=== PATIENT | male | born 1960 | race Caucasian/White ===

== ENCOUNTER 2018-01-17 18:59 | Inpatient (IN) | payer MEDICAID, OTHER ==
[~2018-01-17] VITALS: Ht 177.8 cm; Wt 128.7 kg
[2018-01-17] MEDS ORDERED: ondansetron/PF 4mg/2ml inj IV ONE (19:50)
[2018-01-17] MEDS ORDERED: normal saline 1000ML IV soln IVB ONE ×2 (19:50→22:10)
[2018-01-17] MEDS ORDERED: morphine 4 MG/ML inj SYRINge IV ONE (20:00)
[2018-01-17 20:08] LABS: BASOPHILS % (AUTO) 0.3 % (0-1); EOSINOPHILS % (AUTO) 0.4 % (0-6); HEMATOCRIT 44.2 % (42.0-52.0); HEMOGLOBIN 14.9 g/dl (14.0-17.9); LYMPHOCYTES # (AUTO) 0.7 X10'3 (1.1-4.8); LYMPHOCYTES % (AUTO) 11.2 % (21-51); MEAN CORPUSCULAR HEMOGLOBIN 38.5 PG (27.0-31.0); MEAN CORPUSCULAR HGB CONC 33.7 % (33.0-36.5); MEAN CORPUSCULAR VOLUME 114.2 FL (78-98); MEAN PLATELET VOLUME 10.1 FL (7.4-10.4); MONOCYTES # (AUTO) 0.8 X10'3 (0-0.9); MONOCYTES % (AUTO) 12.2 % (2-12); NEUTROPHILS # (AUTO) 4.9 X10'3 (1.8-7.7); NEUTROPHILS % (AUTO) 75.9 % (42-75); PLATELET COUNT 61 X10'3 (140-440); RED BLOOD COUNT 3.87 X10'6 (4.70-6.10); RED CELL DISTRIBUTION WIDTH 15.3 % (11.5-14.5); WHITE BLOOD COUNT 6.4 X10'3 (4.5-11.0)
[2018-01-17 20:22] LABS: ALANINE AMINOTRANSFERASE 32 U/L (12-78); ALBUMIN 1.6 G/DL (3.4-5.0); ALKALINE PHOSPHATASE 75 IU/L (46-116); ASPARTATE AMINO TRANSFERASE 61 U/L (10-37); BILIRUBIN,TOTAL 10.3 MG/DL (0.1-1.0); BLOOD UREA NITROGEN 19 MG/DL (7-18); CALCIUM 7.9 MG/DL (8.5-10.1); CHLORIDE 97 MMOL/L (99-107); CREATININE 1.73 MG/DL (0.60-1.10); GLUCOSE 101 MG/DL (70-104); TOTAL CARBON DIOXIDE 24.1 MMOL/L (24-32); eGFR 41 ML/MIN
[2018-01-17 20:41] LABS: ALBUMIN/GLOBULIN RATIO 0.3 (1.1-1.5); ANION GAP 16 (8-16); POTASSIUM 3.8 MMOL/L (3.5-5.1); SODIUM 137 MMOL/L (135-145); TOTAL PROTEIN 6.5 G/DL (6.4-8.2)
[2018-01-17 20:42] LABS: ANISOCYTOSIS 1+; PLATELET ESTIMATE DECREASED
[2018-01-17] MEDS: piperacillin/tazo 3.375gm/50ml 50 ML IV SCH (20:53)
[2018-01-17] MEDS ORDERED: SPIR25TA5 PO (20:59)
[2018-01-17] MEDS ORDERED: DIGO125T97 PO (20:59)
[2018-01-17] MEDS ORDERED: THI100T PO (20:59)
[2018-01-17] MEDS ORDERED: FURO20TA4 PO (20:59)
[2018-01-17] MEDS ORDERED: METO-411 PO (20:59)
[2018-01-17] MEDS ORDERED: LISI2.5T2 PO (20:59)
[2018-01-17] MEDS ORDERED: FURO40TA4 PO (20:59)
[2018-01-17] MEDS ORDERED: FOLI0.4T2 PO (20:59)
[2018-01-17] MEDS ORDERED: temazepam 15mg capsule PO PRN (21:00)
[2018-01-17 22:31] LABS: ETHANOL 0.026 GM/DL (0.0-0.010); LIPASE 128 U/L (73-393); MAGNESIUM 1.6 MG/DL (1.5-2.4)
[2018-01-17 22:36] LABS: PROTHROMBIN TIME 20.1 SECONDS (9.0-12.0)
[2018-01-17 22:37] LABS: PARTIAL THROMBOPLASTIN TIME 42 SECONDS (22-32)
[2018-01-17] MEDS ORDERED: magnesium hydroxide 30ml (MOM) UD suspension PO PRN (23:35)
[2018-01-17] MEDS ORDERED: bisacodyl 10mg suppository rectal RC PRN (23:35)
[2018-01-17] MEDS ORDERED: methylPREDNISolone sod succ 125mg/2ml vial IV ONE (23:35)
[2018-01-17] MEDS ORDERED: loperamide 2mg capsule PO PRN (23:35)
[2018-01-17] MEDS ORDERED: acetaminophen 325mg tablet PO PRN ×2 (23:35)
[2018-01-17] MEDS ORDERED: dicyclomine 10 MG capsule PO PRN (23:35)
[2018-01-17] MEDS ORDERED: haloperidol 5mg tablet PO PRN (23:35)
[2018-01-17] MEDS ORDERED: haloperidol lactate 5mg/ml inj IM PRN (23:35)
[2018-01-17] MEDS ORDERED: cyclobenzaprine 10mg tablet PO PRN (23:35)
[2018-01-17] MEDS ORDERED: mag hydrox/Alum hydrox/simeth 30ml oral suspension PO PRN ×2 (23:35)
[2018-01-17] MEDS ORDERED: morphine 2 MG/ML inj. syringe IV PRN (23:35)
[2018-01-17] MEDS ORDERED: acetaminophen 650mg rectal suppository RC PRN (23:35)
[2018-01-17] MEDS ORDERED: diphenhydrAMINE 50 mg/ml inj IV PRN (23:35)
[2018-01-17] MEDS ORDERED: diphenhydrAMINE 25mg capsule PO PRN (23:35)
[2018-01-17] MEDS ORDERED: dextrose 50%-water 50ml dispensing syringe IV PRN (23:35)
[2018-01-17] MEDS ORDERED: HYDROmorphone 1 mg/ml syringe IV PRN (23:35)
[2018-01-17] MEDS ORDERED: magnesium Cl slow-release 64mg tablet PO PRN (23:45)
[2018-01-17] MEDS ORDERED: magnesium 4gm in 100ml NS 100 ML IV PRN (23:45)
[2018-01-17] MEDS ORDERED: magnesium 1gm/100ml D5W IVPB 100 ML IV PRN (23:45)
[2018-01-18] VITALS (10 sets, daily range): BP systolic 79–120; BP diastolic 42–76
[2018-01-18] MEDS ORDERED: piperacillin/tazo 3.375gm/50ml 50 ML IV SCH
[2018-01-18] MEDS: normal saline 1000ml 1,000 ML IV SCH ×3 (00:02→19:33)
[2018-01-18 00:06] LABS: ABG BASE EXCESS -2.9 mmol/L (-2.0-3.0); ABG HCO3 21.7 mmol/L (22.0-26.0); ABG OXYGEN SATURATION 95.2 % (95-98); ABG PCO2 (T) 37.3 mmHg (35.0-48.0); ABG PH (T) 7.381 (7.350-7.450); ABG PO2 (T) 79.9 mmHg (83-108); ALLEN'S TEST Positive; FCOHb 2.3 % (0.5-1.5); FLOW 2 L/min; PATIENT TEMPERATURE 36.9; RESPIRATORY RATE (OBSERVED) 20 b/min
[2018-01-18 00:47] LABS: HEMOGLOBIN A1C 4.6 % (4.5-6.2)
[2018-01-18 00:47] LABS: URINE AMPHETAMINE SCREEN NEGATIVE (Neg); URINE BARBITUATE SCREEN NEGATIVE (Neg); URINE BENZODIAZEPINES SCREEN NEGATIVE (Neg); URINE CANNABINOID SCREEN POSITIVE (Neg); URINE COCAINE SCREEN NEGATIVE (Neg); URINE METHADONE SCREEN NEGATIVE (Neg); URINE OPIATE SCREEN POSITIVE (Neg); URINE PHENCYCLIDINE SCREEN NEGATIVE (Neg)
[2018-01-18] MEDS: piperacillin/tazo 3.375gm/50ml 50 ML IV SCH (02:00)
[2018-01-18] MEDS: morphine 2 MG/ML inj. syringe IV PRN (04:56)
[2018-01-18] MEDS: docusate sod 100mg capsule PO SCH ×2 (06:26→19:36)
[2018-01-18 06:35] LABS: HEMATOCRIT 41.4 % (42.0-52.0); HEMOGLOBIN 14.1 g/dl (14.0-17.9); MEAN CORPUSCULAR HEMOGLOBIN 38.9 PG (27.0-31.0); MEAN CORPUSCULAR VOLUME 114.5 FL (78-98); MEAN PLATELET VOLUME 10.3 FL (7.4-10.4); RED BLOOD COUNT 3.62 X10'6 (4.70-6.10); RED CELL DISTRIBUTION WIDTH 15.2 % (11.5-14.5); WHITE BLOOD COUNT 5.2 X10'3 (4.5-11.0)
[2018-01-18 06:42] LABS: PLATELET COUNT 40 X10'3 (140-440)
[2018-01-18 06:59] LABS: ALANINE AMINOTRANSFERASE 27 U/L (12-78); ALBUMIN 1.4 G/DL (3.4-5.0); ALKALINE PHOSPHATASE 58 IU/L (46-116); AMYLASE 21 U/L (25-115); ANION GAP 9 (8-16); ASPARTATE AMINO TRANSFERASE 53 U/L (10-37); BILIRUBIN,TOTAL 9.8 MG/DL (0.1-1.0); BLOOD UREA NITROGEN 27 MG/DL (7-18); BUN/CREATININE RATIO 13.9 (5.4-32.0); CALCIUM 7.1 MG/DL (8.5-10.1); CHLORIDE 103 MMOL/L (99-107); CREATININE 1.94 MG/DL (0.60-1.10); GLUCOSE 72 MG/DL (70-104); MAGNESIUM 1.4 MG/DL (1.5-2.4); SODIUM 134 MMOL/L (135-145); TOTAL CARBON DIOXIDE 22.5 MMOL/L (24-32); eGFR 36 ML/MIN
[2018-01-18 07:03] LABS: ANISOCYTOSIS 1+; PLATELET ESTIMATE DECREASED; TOTAL CELLS COUNTED 100
[2018-01-18 07:04] LABS: POLYCHROMASIA FEW
[2018-01-18 07:10] LABS: ALBUMIN/GLOBULIN RATIO 0.4 (1.1-1.5); POTASSIUM 4.6 MMOL/L (3.5-5.1); TOTAL PROTEIN 5.4 G/DL (6.4-8.2)
[2018-01-18] MEDS: piperacillin/tazobactam inj. 3.375 GM in normal saline 100ml IV SCH ×3 (07:17→19:25)
[2018-01-18] MEDS: pantoprazole 40 MG vial IV SCH ×2 (07:17→19:25)
[2018-01-18] MEDS: albumin (Human) 5% 250ml 250 ML IV SCH ×2 (07:19→19:42)
[2018-01-18] MEDS: folic acid inj. 2 MG, thiamine inj. 100 MG, MVI, adult No.4 with vit. K 10 ML in dextro... IV SCH ×4 (08:00)
[2018-01-18 11:01] LABS: C DIFF ANTIGEN NEGATIVE (NEGATIVE); C DIFF SPECIMEN=DIARRHEA? ACCEPTABLE; C DIFFICILE TOXINS A&B NEGATIVE (Neg); OCCULT BLOOD STOOL NEGATIVE (Neg)
[2018-01-18] MEDS: HYDROcodone/acetaminophen 5mg/325mg tablet PO PRN ×2 (11:50→19:58)
[2018-01-18] MEDS: digoxin 125mcg (0.125mg) tablet PO SCH (19:26)
[2018-01-18] MEDS: lactobacillus rhamnosus 10,000 MMU CELLS/CAPSULE PO SCH (19:36)
[2018-01-18] MEDS ORDERED: normal saline 500ml IV soln 1,000 ML IV ONE (23:25)
[2018-01-19] VITALS (11 sets, daily range): BP systolic 83–119; BP diastolic 40–65
[2018-01-19] MEDS ORDERED: normal saline 500ml IV soln 1,000 ML IV ONE (00:50)
[2018-01-19] MEDS ORDERED: albumin (Human) 5% 250ml 250 ML IV ONE (01:15)
[2018-01-19] MEDS: piperacillin/tazobactam inj. 3.375 GM in normal saline 100ml IV SCH ×4 (02:24→19:26)
[2018-01-19] MEDS: normal saline 1000ml 1,000 ML IV SCH ×2 (02:35→15:37)
[2018-01-19] MEDS ORDERED: albumin (human) 25% 100ml IV 100 ML IV ONE ×2 (03:10)
[2018-01-19] MEDS ORDERED: normal saline 1000ml 1,000 ML IV ONE (03:10)
[2018-01-19 03:13] LABS: BASOPHILS % (AUTO) 0.8 % (0-1); EOSINOPHILS % (AUTO) 0.3 % (0-6); HEMATOCRIT 37.5 % (42.0-52.0); HEMOGLOBIN 12.8 g/dl (14.0-17.9); LYMPHOCYTES # (AUTO) 0.5 X10'3 (1.1-4.8); MEAN CORPUSCULAR HEMOGLOBIN 39.1 PG (27.0-31.0); MEAN CORPUSCULAR VOLUME 114.9 FL (78-98); MEAN PLATELET VOLUME 10.9 FL (7.4-10.4); MONOCYTES # (AUTO) 0.5 X10'3 (0-0.9); MONOCYTES % (AUTO) 8.2 % (2-12); NEUTROPHILS # (AUTO) 4.7 X10'3 (1.8-7.7); NEUTROPHILS % (AUTO) 81.7 % (42-75); RED BLOOD COUNT 3.26 X10'6 (4.70-6.10); WHITE BLOOD COUNT 5.7 X10'3 (4.5-11.0)
[2018-01-19 03:19] LABS: PLATELET COUNT 40 X10'3 (140-440)
[2018-01-19 03:26] LABS: ALANINE AMINOTRANSFERASE 23 U/L (12-78); ALBUMIN 1.6 G/DL (3.4-5.0); ALKALINE PHOSPHATASE 31 IU/L (46-116); AMYLASE 17 U/L (25-115); ANION GAP 1 (8-16); ASPARTATE AMINO TRANSFERASE 48 U/L (10-37); BILIRUBIN,TOTAL 8.7 MG/DL (0.1-1.0); BLOOD UREA NITROGEN 43 MG/DL (7-18); BUN/CREATININE RATIO 21.9 (5.4-32.0); CHLORIDE 103 MMOL/L (99-107); CREATININE 1.96 MG/DL (0.60-1.10); GLUCOSE 121 MG/DL (70-104); MAGNESIUM 1.9 MG/DL (1.5-2.4); eGFR 35 ML/MIN
[2018-01-19 03:50] LABS: POTASSIUM 4.6 MMOL/L (3.5-5.1)
[2018-01-19 03:51] LABS: ALBUMIN/GLOBULIN RATIO 0.5 (1.1-1.5); SODIUM 132 MMOL/L (135-145)
[2018-01-19 04:15] LABS: ANISOCYTOSIS 2+; PLATELET ESTIMATE DECREASED; TOTAL CELLS COUNTED 100
[2018-01-19 04:16] LABS: POLYCHROMASIA FEW; TARGET CELLS FEW
[2018-01-19] MEDS: lactobacillus rhamnosus 10,000 MMU CELLS/CAPSULE PO SCH ×2 (07:20→19:26)
[2018-01-19] MEDS: pantoprazole 40 MG vial IV SCH (07:20)
[2018-01-19] MEDS: digoxin 125mcg (0.125mg) tablet PO SCH (07:20)
[2018-01-19] MEDS: albumin (Human) 5% 250ml 250 ML IV SCH (07:22)
[2018-01-19] MEDS: folic acid inj. 2 MG, thiamine inj. 100 MG, MVI, adult No.4 with vit. K 10 ML in dextro... IV SCH ×4 (07:24)
[2018-01-19] MEDS: docusate sod 100mg capsule PO SCH ×2 (07:28→19:26)
[2018-01-19] MEDS: HYDROcodone/acetaminophen 5mg/325mg tablet PO PRN ×2 (09:15→16:00)
[2018-01-19] MEDS: pantoprazole 40mg Tablet.DR PO SCH (19:26)
[2018-01-20] MEDS: normal saline 1000ml 1,000 ML IV SCH ×3 (01:09→21:33)
[2018-01-20] MEDS: piperacillin/tazobactam inj. 3.375 GM in normal saline 100ml IV SCH ×4 (01:28→20:52)
[2018-01-20 03:02] VITALS: BP 105/67
[2018-01-20 05:24] LABS: BASOPHILS % (AUTO) 0.4 % (0-1); EOSINOPHILS % (AUTO) 0.6 % (0-6); HEMATOCRIT 38.8 % (42.0-52.0); LYMPHOCYTES # (AUTO) 0.3 X10'3 (1.1-4.8); LYMPHOCYTES % (AUTO) 4.8 % (21-51); MEAN CORPUSCULAR HEMOGLOBIN 38.6 PG (27.0-31.0); MEAN CORPUSCULAR HGB CONC 33.4 % (33.0-36.5); MEAN CORPUSCULAR VOLUME 115.6 FL (78-98); MEAN PLATELET VOLUME 10.2 FL (7.4-10.4); MONOCYTES # (AUTO) 0.3 X10'3 (0-0.9); MONOCYTES % (AUTO) 4.7 % (2-12); NEUTROPHILS # (AUTO) 5.9 X10'3 (1.8-7.7); NEUTROPHILS % (AUTO) 89.5 % (42-75); RED BLOOD COUNT 3.35 X10'6 (4.70-6.10); RED CELL DISTRIBUTION WIDTH 15.3 % (11.5-14.5); WHITE BLOOD COUNT 6.6 X10'3 (4.5-11.0)
[2018-01-20 05:50] LABS: PLATELET COUNT 43 X10'3 (140-440)
[2018-01-20 05:57] LABS: ALANINE AMINOTRANSFERASE 35 U/L (12-78); ALKALINE PHOSPHATASE 56 IU/L (46-116); AMYLASE 42 U/L (25-115); ANION GAP 6 (8-16); ASPARTATE AMINO TRANSFERASE 70 U/L (10-37); BILIRUBIN,TOTAL 8.9 MG/DL (0.1-1.0); BLOOD UREA NITROGEN 38 MG/DL (7-18); BUN/CREATININE RATIO 30.6 (5.4-32.0); CALCIUM 7.2 MG/DL (8.5-10.1); CHLORIDE 104 MMOL/L (99-107); CREATININE 1.24 MG/DL (0.60-1.10); GLUCOSE 108 MG/DL (70-104); MAGNESIUM 2.3 MG/DL (1.5-2.4); SODIUM 136 MMOL/L (135-145); TOTAL CARBON DIOXIDE 25.8 MMOL/L (24-32); eGFR 60 ML/MIN
[2018-01-20 05:58] LABS: ALBUMIN/GLOBULIN RATIO 0.6 (1.1-1.5); POTASSIUM 3.7 MMOL/L (3.5-5.1); TOTAL PROTEIN 5.2 G/DL (6.4-8.2)
[2018-01-20 06:00] VITALS: BP 111/70
[2018-01-20 06:46] LABS: BANDS% (MANUAL) 5 % (0-10); LYMPHOCYTES % (MANUAL) 10 % (21-51); NEUTROPHILS % (MANUAL) 80 % (42-75); TOTAL CELLS COUNTED 100
[2018-01-20 06:47] LABS: MONOCYTES % (MANUAL) 5 % (2-12); PLATELET ESTIMATE DECREASED
[2018-01-20 06:48] LABS: TOXIC VACUOLATION 1+
[2018-01-20] MEDS: docusate sod 100mg capsule PO SCH ×2 (06:57→20:00)
[2018-01-20] MEDS: HYDROcodone/acetaminophen 5mg/325mg tablet PO PRN ×4 (07:49→22:53)
[2018-01-20] MEDS: folic acid 1mg tablet PO SCH (07:49)
[2018-01-20] MEDS: thiamine 100mg tablet PO SCH (07:50)
[2018-01-20] MEDS: pantoprazole 40mg Tablet.DR PO SCH ×2 (07:53→20:43)
[2018-01-20] MEDS: multivitamins, therapeutics tablet PO SCH (07:53)
[2018-01-20] MEDS: lactobacillus rhamnosus 10,000 MMU CELLS/CAPSULE PO SCH ×2 (07:54→20:48)
[2018-01-20] MEDS: folic acid inj. 2 MG, thiamine inj. 100 MG, MVI, adult No.4 with vit. K 10 ML in dextro... IV SCH ×4 (08:00)
[2018-01-20] MEDS: digoxin 125mcg (0.125mg) tablet PO SCH (10:29)
[2018-01-20 11:00] VITALS: BP 105/76
[2018-01-20] MEDS: diltiazem 30mg tablet PO SCH ×2 (13:24→20:43)
[2018-01-20 15:00] VITALS: BP 108/44
[2018-01-20 18:00] VITALS: BP 118/43
[2018-01-20 22:00] VITALS: BP 123/71
[2018-01-20] MEDS: morphine 2 MG/ML inj. syringe IV PRN (23:05)
[2018-01-21] VITALS (7 sets, daily range): BP systolic 120–177; BP diastolic 58–80
[2018-01-21] MEDS: diltiazem 30mg tablet PO SCH ×4 (01:43→21:08)
[2018-01-21] MEDS: piperacillin/tazobactam inj. 3.375 GM in normal saline 100ml IV SCH ×4 (01:43→21:07)
[2018-01-21] MEDS: morphine 2 MG/ML inj. syringe IV PRN (03:08)
[2018-01-21 05:19] LABS: BASOPHILS % (AUTO) 0.1 % (0-1); EOSINOPHILS # (AUTO) 0.1 X10'3 (0-0.9); EOSINOPHILS % (AUTO) 1.2 % (0-6); HEMATOCRIT 36.9 % (42.0-52.0); HEMOGLOBIN 12.6 g/dl (14.0-17.9); LYMPHOCYTES # (AUTO) 0.4 X10'3 (1.1-4.8); MEAN CORPUSCULAR HGB CONC 34.1 % (33.0-36.5); MEAN CORPUSCULAR VOLUME 114.3 FL (78-98); MEAN PLATELET VOLUME 9.7 FL (7.4-10.4); MONOCYTES # (AUTO) 0.3 X10'3 (0-0.9); MONOCYTES % (AUTO) 4.2 % (2-12); NEUTROPHILS # (AUTO) 6.5 X10'3 (1.8-7.7); NEUTROPHILS % (AUTO) 89.5 % (42-75); RED BLOOD COUNT 3.22 X10'6 (4.70-6.10); RED CELL DISTRIBUTION WIDTH 15.6 % (11.5-14.5); WHITE BLOOD COUNT 7.3 X10'3 (4.5-11.0)
[2018-01-21 05:55] LABS: ALANINE AMINOTRANSFERASE 42 U/L (12-78); ALBUMIN 1.9 G/DL (3.4-5.0); ALKALINE PHOSPHATASE 69 IU/L (46-116); ANION GAP 5 (8-16); ASPARTATE AMINO TRANSFERASE 105 U/L (10-37); BILIRUBIN,TOTAL 9.1 MG/DL (0.1-1.0); BLOOD UREA NITROGEN 26 MG/DL (7-18); BUN/CREATININE RATIO 22.6 (5.4-32.0); CALCIUM 7.3 MG/DL (8.5-10.1); CHLORIDE 104 MMOL/L (99-107); CREATININE 1.15 MG/DL (0.60-1.10); GLUCOSE 86 MG/DL (70-104); MAGNESIUM 2.3 MG/DL (1.5-2.4); SODIUM 137 MMOL/L (135-145); TOTAL CARBON DIOXIDE 27.8 MMOL/L (24-32); eGFR 66 ML/MIN
[2018-01-21 05:56] LABS: ALBUMIN/GLOBULIN RATIO 0.6 (1.1-1.5); POTASSIUM 3.6 MMOL/L (3.5-5.1); TOTAL PROTEIN 5.3 G/DL (6.4-8.2)
[2018-01-21 06:12] LABS: PLATELET COUNT 32 X10'3 (140-440)
[2018-01-21 06:15] LABS: BANDS% (MANUAL) 13 % (0-10); LYMPHOCYTES % (MANUAL) 6 % (21-51); METAMYLEOCYTES% (MANUAL) 1 % (0-0); NEUTROPHILS % (MANUAL) 80 % (42-75); NUCLEATED RED BLOOD CELLS 2 /100WBC (0-0); PLATELET ESTIMATE DECREASED; TOTAL CELLS COUNTED 100
[2018-01-21 06:16] LABS: ANISOCYTOSIS 1+
[2018-01-21] MEDS: docusate sod 100mg capsule PO SCH ×2 (08:37→21:08)
[2018-01-21] MEDS: lactobacillus rhamnosus 10,000 MMU CELLS/CAPSULE PO SCH ×2 (08:38→21:07)
[2018-01-21] MEDS: multivitamins, therapeutics tablet PO SCH (08:39)
[2018-01-21] MEDS: folic acid 1mg tablet PO SCH ×2 (08:39→21:15)
[2018-01-21] MEDS: digoxin 125mcg (0.125mg) tablet PO SCH (08:42)
[2018-01-21] MEDS: pantoprazole 40mg Tablet.DR PO SCH ×2 (08:43→21:08)
[2018-01-21] MEDS: thiamine 100mg tablet PO SCH (08:43)
[2018-01-21] MEDS: normal saline 1000ml 1,000 ML IV SCH (08:48)
[2018-01-21] MEDS ORDERED: lactose-reduced food (Ensure Enlive) - 237ml bottle PO SCH (13:00)
[2018-01-21] MEDS: cyclobenzaprine 10mg tablet PO PRN (14:48)
[2018-01-22] VITALS (7 sets, daily range): BP systolic 99–133; BP diastolic 57–82
[2018-01-22] MEDS: diltiazem 30mg tablet PO SCH ×4 (02:37→20:07)
[2018-01-22] MEDS: piperacillin/tazobactam inj. 3.375 GM in normal saline 100ml IV SCH ×4 (02:38→20:07)
[2018-01-22 06:12] LABS: BASOPHILS % (AUTO) 0.2 % (0-1); EOSINOPHILS # (AUTO) 0.2 X10'3 (0-0.9); EOSINOPHILS % (AUTO) 3.5 % (0-6); HEMATOCRIT 35.4 % (42.0-52.0); HEMOGLOBIN 12.1 g/dl (14.0-17.9); LYMPHOCYTES # (AUTO) 0.6 X10'3 (1.1-4.8); LYMPHOCYTES % (AUTO) 8.2 % (21-51); MEAN CORPUSCULAR HEMOGLOBIN 38.7 PG (27.0-31.0); MEAN CORPUSCULAR HGB CONC 34.2 % (33.0-36.5); MEAN CORPUSCULAR VOLUME 113.1 FL (78-98); MEAN PLATELET VOLUME 8.9 FL (7.4-10.4); MONOCYTES # (AUTO) 0.4 X10'3 (0-0.9); MONOCYTES % (AUTO) 5.4 % (2-12); NEUTROPHILS # (AUTO) 5.7 X10'3 (1.8-7.7); NEUTROPHILS % (AUTO) 82.7 % (42-75); RED BLOOD COUNT 3.13 X10'6 (4.70-6.10); RED CELL DISTRIBUTION WIDTH 15.8 % (11.5-14.5); WHITE BLOOD COUNT 6.9 X10'3 (4.5-11.0)
[2018-01-22 06:31] LABS: ALANINE AMINOTRANSFERASE 46 U/L (12-78); ALBUMIN 1.6 G/DL (3.4-5.0); ALKALINE PHOSPHATASE 79 IU/L (46-116); ANION GAP 5 (8-16); ASPARTATE AMINO TRANSFERASE 120 U/L (10-37); BILIRUBIN,TOTAL 8.3 MG/DL (0.1-1.0); BLOOD UREA NITROGEN 19 MG/DL (7-18); BUN/CREATININE RATIO 16.5 (5.4-32.0); CALCIUM 7.3 MG/DL (8.5-10.1); CHLORIDE 104 MMOL/L (99-107); CREATININE 1.15 MG/DL (0.60-1.10); GLUCOSE 115 MG/DL (70-104); MAGNESIUM 2.1 MG/DL (1.5-2.4); POTASSIUM 3.3 MMOL/L (3.5-5.1); SODIUM 137 MMOL/L (135-145); TOTAL CARBON DIOXIDE 27.7 MMOL/L (24-32); eGFR 66 ML/MIN
[2018-01-22 06:34] LABS: ALBUMIN/GLOBULIN RATIO 0.5 (1.1-1.5); TOTAL PROTEIN 4.9 G/DL (6.4-8.2)
[2018-01-22 06:48] LABS: PLATELET COUNT 30 X10'3 (140-440)
[2018-01-22] MEDS: digoxin 125mcg (0.125mg) tablet PO SCH (08:41)
[2018-01-22] MEDS: lactobacillus rhamnosus 10,000 MMU CELLS/CAPSULE PO SCH ×2 (08:42→20:07)
[2018-01-22] MEDS: multivitamins, therapeutics tablet PO SCH (08:42)
[2018-01-22] MEDS: pantoprazole 40mg Tablet.DR PO SCH ×2 (08:42→20:07)
[2018-01-22] MEDS: docusate sod 100mg capsule PO SCH ×2 (08:42→20:07)
[2018-01-22] MEDS: thiamine 100mg tablet PO SCH (08:43)
[2018-01-22] MEDS: HYDROcodone/acetaminophen 5mg/325mg tablet PO PRN ×2 (08:43→23:59)
[2018-01-22 09:43] LABS: TOTAL CELLS COUNTED 100
[2018-01-22 10:12] LABS: ANISOCYTOSIS 1+; PLATELET ESTIMATE DECREASED
[2018-01-22] MEDS: cyclobenzaprine 10mg tablet PO PRN (11:54)
[2018-01-22] MEDS ORDERED: potassium Cl 20 mEq SR tablet PO ONE (12:00)
[2018-01-23] MEDS: diltiazem 30mg tablet PO SCH ×4 (02:32→20:53)
[2018-01-23] MEDS: piperacillin/tazobactam inj. 3.375 GM in normal saline 100ml IV SCH ×4 (02:33→20:53)
[2018-01-23 03:00] VITALS: BP 106/73
[2018-01-23 06:48] VITALS: BP 129/72
[2018-01-23] MEDS: multivitamins, therapeutics tablet PO SCH (08:12)
[2018-01-23] MEDS: pantoprazole 40mg Tablet.DR PO SCH ×2 (08:12→20:53)
[2018-01-23] MEDS: digoxin 125mcg (0.125mg) tablet PO SCH (08:13)
[2018-01-23] MEDS: folic acid 1mg tablet PO SCH (08:13)
[2018-01-23] MEDS: lactobacillus rhamnosus 10,000 MMU CELLS/CAPSULE PO SCH ×2 (08:13→20:53)
[2018-01-23] MEDS: docusate sod 100mg capsule PO SCH ×2 (08:13→20:53)
[2018-01-23] MEDS: thiamine 100mg tablet PO SCH (08:13)
[2018-01-23] MEDS: HYDROcodone/acetaminophen 5mg/325mg tablet PO PRN ×2 (08:16→19:00)
[2018-01-23 10:12] LABS: BASOPHILS % (AUTO) 0.3 % (0-1); EOSINOPHILS # (AUTO) 0.3 X10'3 (0-0.9); EOSINOPHILS % (AUTO) 2.9 % (0-6); HEMATOCRIT 40.5 % (42.0-52.0); HEMOGLOBIN 13.8 g/dl (14.0-17.9); LYMPHOCYTES # (AUTO) 0.7 X10'3 (1.1-4.8); LYMPHOCYTES % (AUTO) 7.4 % (21-51); MEAN CORPUSCULAR HEMOGLOBIN 38.7 PG (27.0-31.0); MEAN CORPUSCULAR HGB CONC 34.1 % (33.0-36.5); MEAN CORPUSCULAR VOLUME 113.3 FL (78-98); MEAN PLATELET VOLUME 9.4 FL (7.4-10.4); MONOCYTES # (AUTO) 0.5 X10'3 (0-0.9); MONOCYTES % (AUTO) 5.3 % (2-12); NEUTROPHILS # (AUTO) 7.6 X10'3 (1.8-7.7); NEUTROPHILS % (AUTO) 84.1 % (42-75); RED BLOOD COUNT 3.57 X10'6 (4.70-6.10); RED CELL DISTRIBUTION WIDTH 15.8 % (11.5-14.5); WHITE BLOOD COUNT 9.1 X10'3 (4.5-11.0)
[2018-01-23 10:15] LABS: PLATELET COUNT 34 X10'3 (140-440)
[2018-01-23 10:39] LABS: ALBUMIN 1.7 G/DL (3.4-5.0); ANION GAP 7 (8-16); ANISOCYTOSIS 1+; BLOOD UREA NITROGEN 16 MG/DL (7-18); BUN/CREATININE RATIO 18.6 (5.4-32.0); CALCIUM 7.3 MG/DL (8.5-10.1); CHLORIDE 102 MMOL/L (99-107); CREATININE 0.86 MG/DL (0.60-1.10); GLUCOSE 88 MG/DL (70-104); MAGNESIUM 2.1 MG/DL (1.5-2.4); PLATELET ESTIMATE DECREASED; POLYCHROMASIA 1+; SODIUM 136 MMOL/L (135-145); TOTAL CARBON DIOXIDE 27.2 MMOL/L (24-32); eGFR > 90 ML/MIN
[2018-01-23 10:43] LABS: POTASSIUM 3.8 MMOL/L (3.5-5.1)
[2018-01-23 11:00] VITALS: BP 125/77
[2018-01-23] MEDS: furosemide 20 MG/2 ML vial IV SCH (11:02)
[2018-01-23] MEDS: spironolactone 50 MG tablet PO SCH (13:21)
[2018-01-23 15:00] VITALS: BP 138/87
[2018-01-23 18:00] VITALS: BP 159/92
[2018-01-23 22:00] VITALS: BP 128/77
[2018-01-24 02:00] VITALS: BP 117/72
[2018-01-24] MEDS: diltiazem 30mg tablet PO SCH ×4 (02:13→19:52)
[2018-01-24] MEDS: piperacillin/tazobactam inj. 3.375 GM in normal saline 100ml IV SCH ×4 (02:13→19:51)
[2018-01-24] MEDS: HYDROcodone/acetaminophen 5mg/325mg tablet PO PRN ×3 (02:18→20:16)
[2018-01-24 06:00] VITALS: BP 119/76
[2018-01-24] MEDS: furosemide 20 MG/2 ML vial IV SCH (08:46)
[2018-01-24] MEDS: lactobacillus rhamnosus 10,000 MMU CELLS/CAPSULE PO SCH ×2 (08:47→19:51)
[2018-01-24] MEDS: thiamine 100mg tablet PO SCH (08:47)
[2018-01-24] MEDS: spironolactone 50 MG tablet PO SCH (08:47)
[2018-01-24] MEDS: multivitamins, therapeutics tablet PO SCH (08:47)
[2018-01-24] MEDS: digoxin 125mcg (0.125mg) tablet PO SCH (08:48)
[2018-01-24] MEDS: folic acid 1mg tablet PO SCH (08:48)
[2018-01-24] MEDS: docusate sod 100mg capsule PO SCH ×2 (08:48→19:52)
[2018-01-24] MEDS: pantoprazole 40mg Tablet.DR PO SCH ×2 (08:48→19:51)
[2018-01-24 11:00] VITALS: BP 120/73
[2018-01-24] MEDS: lactose-reduced food (Ensure Enlive) - 237ml bottle PO SCH ×2 (13:21→18:00)
[2018-01-24] MEDS: morphine 2 MG/ML inj. syringe IV PRN (13:38)
[2018-01-24 15:00] VITALS: BP 125/72
[2018-01-24 18:00] VITALS: BP 133/86
[2018-01-24 22:00] VITALS: BP 111/47
[2018-01-25] MEDS: HYDROcodone/acetaminophen 5mg/325mg tablet PO PRN ×4 (00:59→22:47)
[2018-01-25] MEDS: diltiazem 30mg tablet PO SCH ×4 (01:56→19:04)
[2018-01-25] MEDS: piperacillin/tazobactam inj. 3.375 GM in normal saline 100ml IV SCH ×2 (01:58→08:35)
[2018-01-25 02:00] VITALS: BP 138/78
[2018-01-25 06:00] VITALS: BP 124/67
[2018-01-25] MEDS: lactose-reduced food (Ensure Enlive) - 237ml bottle PO SCH ×3 (08:00→18:00)
[2018-01-25] MEDS: lactobacillus rhamnosus 10,000 MMU CELLS/CAPSULE PO SCH ×2 (08:21→19:04)
[2018-01-25] MEDS: multivitamins, therapeutics tablet PO SCH (08:21)
[2018-01-25] MEDS: pantoprazole 40mg Tablet.DR PO SCH ×2 (08:21→19:04)
[2018-01-25] MEDS: digoxin 125mcg (0.125mg) tablet PO SCH (08:22)
[2018-01-25] MEDS: docusate sod 100mg capsule PO SCH ×2 (08:22→19:04)
[2018-01-25] MEDS: folic acid 1mg tablet PO SCH (08:22)
[2018-01-25] MEDS: thiamine 100mg tablet PO SCH (08:23)
[2018-01-25] MEDS: spironolactone 50 MG tablet PO SCH (08:23)
[2018-01-25] MEDS: furosemide 20 MG/2 ML vial IV SCH (08:23)
[2018-01-25 09:20] LABS: ALBUMIN 1.6 G/DL (3.4-5.0); ANION GAP 5 (8-16); BLOOD UREA NITROGEN 14 MG/DL (7-18); BUN/CREATININE RATIO 14.9 (5.4-32.0); CALCIUM 7.8 MG/DL (8.5-10.1); CHLORIDE 100 MMOL/L (99-107); CREATININE 0.94 MG/DL (0.60-1.10); GLUCOSE 102 MG/DL (70-104); SODIUM 135 MMOL/L (135-145); TOTAL CARBON DIOXIDE 30.3 MMOL/L (24-32); eGFR 83 ML/MIN
[2018-01-25 09:29] LABS: POTASSIUM 3.6 MMOL/L (3.5-5.1)
[2018-01-25] MEDS: metroNIDAZOLE 500mg tablet PO SCH ×2 (10:17→15:23)
[2018-01-25 11:00] VITALS: BP 112/66
[2018-01-25] MEDS: levoFLOXACIN 500mg tablet PO SCH (11:46)
[2018-01-25 15:00] VITALS: BP 122/77
[2018-01-25 18:00] VITALS: BP 137/78
[2018-01-25 22:00] VITALS: BP 107/53
[2018-01-26] MEDS: metroNIDAZOLE 500mg tablet PO SCH ×3 (00:39→15:53)
[2018-01-26] MEDS: diltiazem 30mg tablet PO SCH ×4 (01:17→19:09)
[2018-01-26 02:00] VITALS: BP 121/70
[2018-01-26 06:24] LABS: ALBUMIN 1.5 G/DL (3.4-5.0); ANION GAP 2 (8-16); BLOOD UREA NITROGEN 13 MG/DL (7-18); BUN/CREATININE RATIO 15.1 (5.4-32.0); CALCIUM 7.7 MG/DL (8.5-10.1); CHLORIDE 100 MMOL/L (99-107); CREATININE 0.86 MG/DL (0.60-1.10); GLUCOSE 99 MG/DL (70-104); SODIUM 133 MMOL/L (135-145); TOTAL CARBON DIOXIDE 31.3 MMOL/L (24-32); eGFR > 90 ML/MIN
[2018-01-26 06:26] LABS: POTASSIUM 3.9 MMOL/L (3.5-5.1)
[2018-01-26 07:00] VITALS: BP 120/76
[2018-01-26] MEDS: thiamine 100mg tablet PO SCH (07:48)
[2018-01-26] MEDS: lactobacillus rhamnosus 10,000 MMU CELLS/CAPSULE PO SCH ×2 (07:48→19:09)
[2018-01-26] MEDS: pantoprazole 40mg Tablet.DR PO SCH ×2 (07:48→19:09)
[2018-01-26] MEDS: docusate sod 100mg capsule PO SCH ×2 (07:48→19:09)
[2018-01-26] MEDS: multivitamins, therapeutics tablet PO SCH (07:48)
[2018-01-26] MEDS: folic acid 1mg tablet PO SCH (07:48)
[2018-01-26] MEDS: digoxin 125mcg (0.125mg) tablet PO SCH (07:51)
[2018-01-26] MEDS: spironolactone 50 MG tablet PO SCH (07:52)
[2018-01-26] MEDS: furosemide 20 MG/2 ML vial IV SCH (07:53)
[2018-01-26] MEDS: lactose-reduced food (Ensure Enlive) - 237ml bottle PO SCH ×3 (08:03→18:00)
[2018-01-26] MEDS: HYDROcodone/acetaminophen 5mg/325mg tablet PO PRN (10:35)
[2018-01-26] MEDS: levoFLOXACIN 500mg tablet PO SCH (10:35)
[2018-01-26 11:00] VITALS: BP 111/70
[2018-01-26 15:00] VITALS: BP 106/64
[2018-01-26 18:00] VITALS: BP 135/72
[2018-01-26] MEDS: morphine 2 MG/ML inj. syringe IV PRN (19:10)
[2018-01-26 22:00] VITALS: BP 95/53
[2018-01-27] MEDS: metroNIDAZOLE 500mg tablet PO SCH ×4 (00:32→23:46)
[2018-01-27] MEDS: morphine 2 MG/ML inj. syringe IV PRN (00:33)
[2018-01-27 02:00] VITALS: BP 105/72
[2018-01-27] MEDS: diltiazem 30mg tablet PO SCH ×4 (02:00→19:20)
[2018-01-27 05:32] LABS: ALBUMIN 1.5 G/DL (3.4-5.0); ANION GAP 4 (8-16); BLOOD UREA NITROGEN 11 MG/DL (7-18); BUN/CREATININE RATIO 12.5 (5.4-32.0); CHLORIDE 100 MMOL/L (99-107); CREATININE 0.88 MG/DL (0.60-1.10); GLUCOSE 83 MG/DL (70-104); SODIUM 135 MMOL/L (135-145); TOTAL CARBON DIOXIDE 30.9 MMOL/L (24-32); eGFR 89 ML/MIN
[2018-01-27 05:35] LABS: POTASSIUM 4.2 MMOL/L (3.5-5.1)
[2018-01-27 07:00] VITALS: BP 130/67
[2018-01-27] MEDS: folic acid 1mg tablet PO SCH (07:37)
[2018-01-27] MEDS: thiamine 100mg tablet PO SCH (07:37)
[2018-01-27] MEDS: lactobacillus rhamnosus 10,000 MMU CELLS/CAPSULE PO SCH ×2 (07:37→19:20)
[2018-01-27] MEDS: pantoprazole 40mg Tablet.DR PO SCH ×2 (07:37→20:16)
[2018-01-27] MEDS: multivitamins, therapeutics tablet PO SCH (07:37)
[2018-01-27] MEDS: docusate sod 100mg capsule PO SCH ×2 (07:38→19:19)
[2018-01-27] MEDS: spironolactone 50 MG tablet PO SCH (07:38)
[2018-01-27] MEDS: furosemide 20 MG/2 ML vial IV SCH ×3 (07:39→23:47)
[2018-01-27] MEDS: digoxin 125mcg (0.125mg) tablet PO SCH (07:41)
[2018-01-27] MEDS: oxyCODONE IR 5mg (immed. release) tablet PO PRN ×3 (08:15→23:46)
[2018-01-27] MEDS: lactose-reduced food (Ensure Enlive) - 237ml bottle PO SCH ×3 (08:16→18:37)
[2018-01-27] MEDS: CefTRIAXone/D5W-Rocephin 1gm 50 ML IV SCH (08:16)
[2018-01-27 08:18] LABS: BASOPHILS % (AUTO) 0.6 % (0-1); EOSINOPHILS # (AUTO) 0.1 X10'3 (0-0.9); EOSINOPHILS % (AUTO) 1.8 % (0-6); HEMATOCRIT 37.9 % (42.0-52.0); HEMOGLOBIN 12.6 g/dl (14.0-17.9); LYMPHOCYTES # (AUTO) 0.9 X10'3 (1.1-4.8); LYMPHOCYTES % (AUTO) 13.3 % (21-51); MEAN CORPUSCULAR HEMOGLOBIN 38.1 PG (27.0-31.0); MEAN CORPUSCULAR HGB CONC 33.2 % (33.0-36.5); MEAN CORPUSCULAR VOLUME 114.8 FL (78-98); MEAN PLATELET VOLUME 10.1 FL (7.4-10.4); MONOCYTES # (AUTO) 0.5 X10'3 (0-0.9); MONOCYTES % (AUTO) 7.5 % (2-12); NEUTROPHILS # (AUTO) 5.2 X10'3 (1.8-7.7); NEUTROPHILS % (AUTO) 76.8 % (42-75); RED CELL DISTRIBUTION WIDTH 15.9 % (11.5-14.5); WHITE BLOOD COUNT 6.8 X10'3 (4.5-11.0)
[2018-01-27 08:23] LABS: ALANINE AMINOTRANSFERASE 49 U/L (12-78); ALKALINE PHOSPHATASE 108 IU/L (46-116); ASPARTATE AMINO TRANSFERASE 106 U/L (10-37); BILIRUBIN,TOTAL 10.7 MG/DL (0.1-1.0)
[2018-01-27 08:42] LABS: ALBUMIN/GLOBULIN RATIO 0.3 (1.1-1.5); BILIRUBIN,DIRECT 6.6 MG/DL (0-0.3); TOTAL PROTEIN 5.8 G/DL (6.4-8.2)
[2018-01-27 08:54] LABS: PLATELET COUNT 44 X10'3 (140-440)
[2018-01-27 08:55] LABS: ANISOCYTOSIS 1+; PLATELET ESTIMATE DECREASED
[2018-01-27 11:00] VITALS: BP 135/69
[2018-01-27 15:00] VITALS: BP 142/74
[2018-01-27 19:00] VITALS: BP 139/75
[2018-01-27 22:09] LABS: CLARITY,URINE CLEAR (Clear); COLOR,URINE ORANGE (Yellow); GLUCOSE, URINE NEGATIVE (Neg); KETONES,URINE TRACE mg/dl (Neg); LEUKOCYTE ESTERASE ,URINE NEGATIVE (Neg); NITRITES, URINE NEGATIVE (Neg); OCCULT BLOOD,URINE NEGATIVE (Neg); PROTEIN,URINE NEGATIVE (Neg)
[2018-01-27 22:20] LABS: UA COLLECTION TYPE VOIDED
[2018-01-27 23:00] VITALS: BP 121/63
[2018-01-28] MEDS: diltiazem 30mg tablet PO SCH ×4 (02:51→19:37)
[2018-01-28 03:00] VITALS: BP 137/75
[2018-01-28] MEDS ORDERED: diltiazem 30mg tablet PO ONE (05:40)
[2018-01-28] MEDS: oxyCODONE IR 5mg (immed. release) tablet PO PRN ×3 (05:46→19:37)
[2018-01-28 06:00] VITALS: BP 126/82
[2018-01-28 06:22] LABS: BASOPHILS % (AUTO) 0.2 % (0-1); EOSINOPHILS # (AUTO) 0.1 X10'3 (0-0.9); EOSINOPHILS % (AUTO) 1.7 % (0-6); HEMOGLOBIN 13.8 g/dl (14.0-17.9); MEAN CORPUSCULAR HEMOGLOBIN 38.9 PG (27.0-31.0); MEAN CORPUSCULAR HGB CONC 34.4 % (33.0-36.5); MEAN CORPUSCULAR VOLUME 113.2 FL (78-98); MEAN PLATELET VOLUME 9.9 FL (7.4-10.4); MONOCYTES # (AUTO) 0.5 X10'3 (0-0.9); MONOCYTES % (AUTO) 5.9 % (2-12); NEUTROPHILS # (AUTO) 6.6 X10'3 (1.8-7.7); NEUTROPHILS % (AUTO) 80.2 % (42-75); PLATELET COUNT 77 X10'3 (140-440); RED BLOOD COUNT 3.54 X10'6 (4.70-6.10); RED CELL DISTRIBUTION WIDTH 16.1 % (11.5-14.5); WHITE BLOOD COUNT 8.3 X10'3 (4.5-11.0)
[2018-01-28 06:28] LABS: ALANINE AMINOTRANSFERASE 59 U/L (12-78); ALBUMIN 1.7 G/DL (3.4-5.0); ALKALINE PHOSPHATASE 131 IU/L (46-116); ANION GAP 4 (8-16); ASPARTATE AMINO TRANSFERASE 125 U/L (10-37); BILIRUBIN,TOTAL 12.6 MG/DL (0.1-1.0); BLOOD UREA NITROGEN 11 MG/DL (7-18); CALCIUM 8.1 MG/DL (8.5-10.1); CHLORIDE 98 MMOL/L (99-107); SODIUM 133 MMOL/L (135-145); TOTAL CARBON DIOXIDE 31.5 MMOL/L (24-32); eGFR 77 ML/MIN
[2018-01-28 06:34] LABS: ALBUMIN/GLOBULIN RATIO 0.3 (1.1-1.5); GLUCOSE 93 MG/DL (70-104); POTASSIUM 4.3 MMOL/L (3.5-5.1); TOTAL PROTEIN 6.7 G/DL (6.4-8.2)
[2018-01-28 06:52] LABS: ANISOCYTOSIS 1+; PLATELET ESTIMATE DECREASED
[2018-01-28] MEDS: CefTRIAXone/D5W-Rocephin 1gm 50 ML IV SCH (07:42)
[2018-01-28] MEDS: digoxin 125mcg (0.125mg) tablet PO SCH (07:43)
[2018-01-28] MEDS: furosemide 20 MG/2 ML vial IV SCH ×2 (07:44→15:49)
[2018-01-28] MEDS: folic acid 1mg tablet PO SCH (07:44)
[2018-01-28] MEDS: docusate sod 100mg capsule PO SCH ×2 (07:44→19:38)
[2018-01-28] MEDS: multivitamins, therapeutics tablet PO SCH (07:44)
[2018-01-28] MEDS: pantoprazole 40mg Tablet.DR PO SCH ×2 (07:44→19:37)
[2018-01-28] MEDS: metroNIDAZOLE 500mg tablet PO SCH ×2 (07:44→15:49)
[2018-01-28] MEDS: thiamine 100mg tablet PO SCH (07:44)
[2018-01-28] MEDS: lactobacillus rhamnosus 10,000 MMU CELLS/CAPSULE PO SCH ×2 (07:44→19:37)
[2018-01-28] MEDS: spironolactone 50 MG tablet PO SCH (07:59)
[2018-01-28] MEDS: lactose-reduced food (Ensure Enlive) - 237ml bottle PO SCH ×3 (10:14→18:00)
[2018-01-28] MEDS ORDERED: LIDOcaine 1%/PF 5ML 10 MG/ML VIAL ONE (10:28)
[2018-01-28 12:01] VITALS: BP 123/66
[2018-01-28 16:11] VITALS: BP 144/82
[2018-01-28 19:00] VITALS: BP 137/65
[2018-01-28] MEDS: cyclobenzaprine 10mg tablet PO PRN (19:38)
[2018-01-28 23:00] VITALS: BP 120/68
[2018-01-29] MEDS: diltiazem 30mg tablet PO SCH ×4 (02:00→20:10)
[2018-01-29 03:00] VITALS: BP 116/70
[2018-01-29 05:27] LABS: BASOPHILS % (AUTO) 0.1 % (0-1); EOSINOPHILS # (AUTO) 0.2 X10'3 (0-0.9); EOSINOPHILS % (AUTO) 2.8 % (0-6); HEMOGLOBIN 11.8 g/dl (14.0-17.9); LYMPHOCYTES # (AUTO) 0.9 X10'3 (1.1-4.8); LYMPHOCYTES % (AUTO) 12.3 % (21-51); MEAN CORPUSCULAR HEMOGLOBIN 39.2 PG (27.0-31.0); MEAN CORPUSCULAR HGB CONC 34.7 % (33.0-36.5); MEAN CORPUSCULAR VOLUME 113.1 FL (78-98); MEAN PLATELET VOLUME 9.7 FL (7.4-10.4); MONOCYTES # (AUTO) 0.7 X10'3 (0-0.9); MONOCYTES % (AUTO) 9.8 % (2-12); NEUTROPHILS # (AUTO) 5.6 X10'3 (1.8-7.7); PLATELET COUNT 79 X10'3 (140-440); RED BLOOD COUNT 3.01 X10'6 (4.70-6.10); RED CELL DISTRIBUTION WIDTH 16.3 % (11.5-14.5); WHITE BLOOD COUNT 7.4 X10'3 (4.5-11.0)
[2018-01-29 05:47] LABS: ALANINE AMINOTRANSFERASE 54 U/L (12-78); ALBUMIN 1.4 G/DL (3.4-5.0); ALKALINE PHOSPHATASE 114 IU/L (46-116); ANION GAP 2 (8-16); ASPARTATE AMINO TRANSFERASE 110 U/L (10-37); BILIRUBIN,TOTAL 12.8 MG/DL (0.1-1.0); BLOOD UREA NITROGEN 12 MG/DL (7-18); BUN/CREATININE RATIO 12.2 (5.4-32.0); CALCIUM 7.3 MG/DL (8.5-10.1); CHLORIDE 97 MMOL/L (99-107); CREATININE 0.98 MG/DL (0.60-1.10); GLUCOSE 88 MG/DL (70-104); SODIUM 130 MMOL/L (135-145); TOTAL CARBON DIOXIDE 30.6 MMOL/L (24-32); eGFR 79 ML/MIN
[2018-01-29 05:49] LABS: ALBUMIN/GLOBULIN RATIO 0.3 (1.1-1.5); TOTAL PROTEIN 5.8 G/DL (6.4-8.2)
[2018-01-29 06:00] VITALS: BP 116/65
[2018-01-29 06:17] LABS: ANISOCYTOSIS 1+; PLATELET ESTIMATE DECREASED
[2018-01-29] MEDS: lactose-reduced food (Ensure Enlive) - 237ml bottle PO SCH ×3 (08:00→18:00)
[2018-01-29] MEDS: CefTRIAXone/D5W-Rocephin 1gm 50 ML IV SCH (08:54)
[2018-01-29] MEDS: folic acid 1mg tablet PO SCH (08:55)
[2018-01-29] MEDS: spironolactone 50 MG tablet PO SCH (08:55)
[2018-01-29] MEDS: pantoprazole 40mg Tablet.DR PO SCH ×2 (08:55→20:10)
[2018-01-29] MEDS: docusate sod 100mg capsule PO SCH ×2 (08:55→20:10)
[2018-01-29] MEDS: thiamine 100mg tablet PO SCH (08:56)
[2018-01-29] MEDS: multivitamins, therapeutics tablet PO SCH (08:56)
[2018-01-29] MEDS: lactobacillus rhamnosus 10,000 MMU CELLS/CAPSULE PO SCH ×2 (08:56→20:10)
[2018-01-29] MEDS: metroNIDAZOLE 500mg tablet PO SCH ×3 (08:56→15:10)
[2018-01-29] MEDS: digoxin 125mcg (0.125mg) tablet PO SCH (08:57)
[2018-01-29] MEDS: oxyCODONE IR 5mg (immed. release) tablet PO PRN ×2 (08:57→15:15)
[2018-01-29] MEDS: furosemide 20 MG/2 ML vial IV SCH ×4 (08:58→20:10)
[2018-01-29 09:07] LABS: MAGNESIUM 1.6 MG/DL (1.5-2.4)
[2018-01-29 11:00] VITALS: BP 130/76
[2018-01-29 15:00] VITALS: BP 118/71
[2018-01-29 18:00] VITALS: BP 125/73
[2018-01-29 22:00] VITALS: BP 122/62
[2018-01-30] MEDS: metroNIDAZOLE 500mg tablet PO SCH ×3 (00:22→15:35)
[2018-01-30] MEDS: oxyCODONE IR 5mg (immed. release) tablet PO PRN ×2 (00:33→08:36)
[2018-01-30] MEDS: furosemide 20 MG/2 ML vial IV SCH ×4 (02:52→20:21)
[2018-01-30] MEDS: diltiazem 30mg tablet PO SCH ×4 (02:52→20:22)
[2018-01-30 06:00] VITALS: BP 106/54
[2018-01-30 07:34] LABS: BASOPHILS % (AUTO) 0.1 % (0-1); EOSINOPHILS # (AUTO) 0.2 X10'3 (0-0.9); EOSINOPHILS % (AUTO) 2.4 % (0-6); HEMATOCRIT 34.6 % (42.0-52.0); HEMOGLOBIN 11.8 g/dl (14.0-17.9); LYMPHOCYTES # (AUTO) 0.9 X10'3 (1.1-4.8); LYMPHOCYTES % (AUTO) 11.7 % (21-51); MEAN CORPUSCULAR HEMOGLOBIN 39.1 PG (27.0-31.0); MEAN CORPUSCULAR HGB CONC 34.2 % (33.0-36.5); MEAN CORPUSCULAR VOLUME 114.4 FL (78-98); MEAN PLATELET VOLUME 9.1 FL (7.4-10.4); MONOCYTES # (AUTO) 0.7 X10'3 (0-0.9); MONOCYTES % (AUTO) 9.1 % (2-12); NEUTROPHILS # (AUTO) 5.8 X10'3 (1.8-7.7); NEUTROPHILS % (AUTO) 76.7 % (42-75); PLATELET COUNT 98 X10'3 (140-440); RED BLOOD COUNT 3.02 X10'6 (4.70-6.10); RED CELL DISTRIBUTION WIDTH 16.4 % (11.5-14.5); WHITE BLOOD COUNT 7.5 X10'3 (4.5-11.0)
[2018-01-30 07:50] LABS: ALANINE AMINOTRANSFERASE 51 U/L (12-78); ALBUMIN 1.4 G/DL (3.4-5.0); ALKALINE PHOSPHATASE 111 IU/L (46-116); ANION GAP 4 (8-16); ASPARTATE AMINO TRANSFERASE 112 U/L (10-37); BILIRUBIN,TOTAL 13.4 MG/DL (0.1-1.0); BLOOD UREA NITROGEN 11 MG/DL (7-18); BUN/CREATININE RATIO 11.1 (5.4-32.0); CALCIUM 7.5 MG/DL (8.5-10.1); CHLORIDE 96 MMOL/L (99-107); CREATININE 0.99 MG/DL (0.60-1.10); GLUCOSE 89 MG/DL (70-104); SODIUM 131 MMOL/L (135-145); TOTAL CARBON DIOXIDE 30.6 MMOL/L (24-32); eGFR 78 ML/MIN
[2018-01-30 08:14] LABS: ANISOCYTOSIS 1+; PLATELET ESTIMATE DECREASED; TARGET CELLS FEW
[2018-01-30 08:15] LABS: POLYCHROMASIA 1+
[2018-01-30 08:28] LABS: ALBUMIN/GLOBULIN RATIO 0.3 (1.1-1.5); POTASSIUM 3.8 MMOL/L (3.5-5.1); TOTAL PROTEIN 5.9 G/DL (6.4-8.2)
[2018-01-30] MEDS ORDERED: sincalide inj 0 MCG in normal saline 50ml IV soln 50 ML IV ONE (08:30)
[2018-01-30] MEDS: CefTRIAXone/D5W-Rocephin 1gm 50 ML IV SCH (08:34)
[2018-01-30] MEDS: thiamine 100mg tablet PO SCH (08:37)
[2018-01-30] MEDS: lactobacillus rhamnosus 10,000 MMU CELLS/CAPSULE PO SCH ×2 (08:37→20:21)
[2018-01-30] MEDS: docusate sod 100mg capsule PO SCH ×2 (08:37→20:21)
[2018-01-30] MEDS: digoxin 125mcg (0.125mg) tablet PO SCH (08:37)
[2018-01-30] MEDS: multivitamins, therapeutics tablet PO SCH (08:37)
[2018-01-30] MEDS: spironolactone 50 MG tablet PO SCH (08:37)
[2018-01-30] MEDS: pantoprazole 40mg Tablet.DR PO SCH ×2 (08:37→20:21)
[2018-01-30] MEDS: folic acid 1mg tablet PO SCH (08:38)
[2018-01-30] MEDS: lactose-reduced food (Ensure Enlive) - 237ml bottle PO SCH ×3 (08:38→18:00)
[2018-01-30 11:00] VITALS: BP 125/67
[2018-01-30 15:00] VITALS: BP 119/57
[2018-01-30] MEDS: morphine 2 MG/ML inj. syringe IV PRN (17:26)
[2018-01-30 18:00] VITALS: BP 132/77
[2018-01-30 22:00] VITALS: BP 128/63
[2018-01-31] VITALS (8 sets, daily range): BP systolic 106–142; BP diastolic 54–82
[2018-01-31] MEDS: metroNIDAZOLE 500mg tablet PO SCH ×3 (00:13→15:32)
[2018-01-31] MEDS: oxyCODONE IR 5mg (immed. release) tablet PO PRN ×3 (00:14→20:57)
[2018-01-31] MEDS: furosemide 20 MG/2 ML vial IV SCH ×4 (03:04→20:43)
[2018-01-31] MEDS: diltiazem 30mg tablet PO SCH ×2 (03:05→07:48)
[2018-01-31] MEDS: morphine 2 MG/ML inj. syringe IV PRN (03:15)
[2018-01-31 07:02] LABS: BASOPHILS % (AUTO) 0 % (0-1); EOSINOPHILS # (AUTO) 0.3 X10'3 (0-0.9); EOSINOPHILS % (AUTO) 3.7 % (0-6); HEMATOCRIT 35.2 % (42.0-52.0); LYMPHOCYTES # (AUTO) 0.8 X10'3 (1.1-4.8); LYMPHOCYTES % (AUTO) 9.8 % (21-51); MEAN CORPUSCULAR HEMOGLOBIN 38.9 PG (27.0-31.0); MEAN CORPUSCULAR HGB CONC 34.1 % (33.0-36.5); MEAN PLATELET VOLUME 8.9 FL (7.4-10.4); MONOCYTES # (AUTO) 0.7 X10'3 (0-0.9); MONOCYTES % (AUTO) 8.3 % (2-12); NEUTROPHILS # (AUTO) 6.3 X10'3 (1.8-7.7); NEUTROPHILS % (AUTO) 78.2 % (42-75); PLATELET COUNT 117 X10'3 (140-440); RED BLOOD COUNT 3.09 X10'6 (4.70-6.10); RED CELL DISTRIBUTION WIDTH 15.9 % (11.5-14.5)
[2018-01-31 07:04] LABS: ALANINE AMINOTRANSFERASE 58 U/L (12-78); ALBUMIN 1.4 G/DL (3.4-5.0); ALKALINE PHOSPHATASE 116 IU/L (46-116); ANION GAP 3 (8-16); BILIRUBIN,TOTAL 14.2 MG/DL (0.1-1.0); BLOOD UREA NITROGEN 11 MG/DL (7-18); CALCIUM 7.3 MG/DL (8.5-10.1); CHLORIDE 95 MMOL/L (99-107); SODIUM 130 MMOL/L (135-145); TOTAL CARBON DIOXIDE 31.8 MMOL/L (24-32)
[2018-01-31 07:06] LABS: ALBUMIN/GLOBULIN RATIO 0.3 (1.1-1.5); ASPARTATE AMINO TRANSFERASE 123 U/L (10-37); CREATININE 0.92 MG/DL (0.60-1.10); GLUCOSE 93 MG/DL (70-104); POTASSIUM 3.7 MMOL/L (3.5-5.1); TOTAL PROTEIN 6.3 G/DL (6.4-8.2); eGFR 85 ML/MIN
[2018-01-31 07:34] LABS: ANISOCYTOSIS 1+; PLATELET ESTIMATE DECREASED; POLYCHROMASIA 1+; TARGET CELLS 1+
[2018-01-31] MEDS: CefTRIAXone/D5W-Rocephin 1gm 50 ML IV SCH (07:48)
[2018-01-31] MEDS: thiamine 100mg tablet PO SCH (07:48)
[2018-01-31] MEDS: spironolactone 50 MG tablet PO SCH (07:48)
[2018-01-31] MEDS: folic acid 1mg tablet PO SCH (07:49)
[2018-01-31] MEDS: digoxin 125mcg (0.125mg) tablet PO SCH (07:50)
[2018-01-31] MEDS: lactobacillus rhamnosus 10,000 MMU CELLS/CAPSULE PO SCH ×2 (07:50→20:44)
[2018-01-31] MEDS: multivitamins, therapeutics tablet PO SCH (07:50)
[2018-01-31] MEDS: pantoprazole 40mg Tablet.DR PO SCH ×2 (07:50→20:44)
[2018-01-31] MEDS: docusate sod 100mg capsule PO SCH ×2 (07:50→20:00)
[2018-01-31] MEDS: lactose-reduced food (Ensure Enlive) - 237ml bottle PO SCH ×3 (07:51→18:00)
[2018-01-31 08:51] LABS: MAGNESIUM 1.7 MG/DL (1.5-2.4)
[2018-01-31] MEDS: propranolol 10mg tablet PO SCH ×2 (12:44→20:44)
[2018-01-31] MEDS: cyclobenzaprine 10mg tablet PO PRN (20:57)
[2018-02-01] VITALS (7 sets, daily range): BP systolic 98–117; BP diastolic 52–66
[2018-02-01] MEDS: metroNIDAZOLE 500mg tablet PO SCH ×3 (00:58→16:42)
[2018-02-01] MEDS: furosemide 20 MG/2 ML vial IV SCH ×4 (02:17→21:02)
[2018-02-01 07:06] LABS: BASOPHILS % (AUTO) 0.5 % (0-1); EOSINOPHILS # (AUTO) 0.4 X10'3 (0-0.9); EOSINOPHILS % (AUTO) 4.9 % (0-6); HEMATOCRIT 35.4 % (42.0-52.0); HEMOGLOBIN 12.1 g/dl (14.0-17.9); LYMPHOCYTES % (AUTO) 13.1 % (21-51); MEAN CORPUSCULAR HGB CONC 34.1 % (33.0-36.5); MEAN CORPUSCULAR VOLUME 114.3 FL (78-98); MEAN PLATELET VOLUME 8.7 FL (7.4-10.4); MONOCYTES # (AUTO) 0.5 X10'3 (0-0.9); MONOCYTES % (AUTO) 6.6 % (2-12); NEUTROPHILS # (AUTO) 5.7 X10'3 (1.8-7.7); NEUTROPHILS % (AUTO) 74.9 % (42-75); PLATELET COUNT 129 X10'3 (140-440); RED CELL DISTRIBUTION WIDTH 16.2 % (11.5-14.5); WHITE BLOOD COUNT 7.7 X10'3 (4.5-11.0)
[2018-02-01 07:21] LABS: ALANINE AMINOTRANSFERASE 56 U/L (12-78); ALBUMIN 1.3 G/DL (3.4-5.0); ALKALINE PHOSPHATASE 134 IU/L (46-116); ANION GAP 1 (8-16); ASPARTATE AMINO TRANSFERASE 118 U/L (10-37); BILIRUBIN,TOTAL 13.9 MG/DL (0.1-1.0); BLOOD UREA NITROGEN 13 MG/DL (7-18); BUN/CREATININE RATIO 12.3 (5.4-32.0); CALCIUM 7.1 MG/DL (8.5-10.1); CHLORIDE 95 MMOL/L (99-107); CREATININE 1.06 MG/DL (0.60-1.10); GLUCOSE 95 MG/DL (70-104); SODIUM 130 MMOL/L (135-145); TOTAL CARBON DIOXIDE 33.6 MMOL/L (24-32); eGFR 72 ML/MIN
[2018-02-01 07:35] LABS: ALBUMIN/GLOBULIN RATIO 0.3 (1.1-1.5); POTASSIUM 3.6 MMOL/L (3.5-5.1)
[2018-02-01 07:45] LABS: ANISOCYTOSIS 1+; PLATELET ESTIMATE DECREASED
[2018-02-01 07:46] LABS: LARGE PLATELETS FEW; POLYCHROMASIA FEW
[2018-02-01] MEDS: lactose-reduced food (Ensure Enlive) - 237ml bottle PO SCH ×3 (08:00→18:00)
[2018-02-01] MEDS: spironolactone 50 MG tablet PO SCH (08:35)
[2018-02-01] MEDS: thiamine 100mg tablet PO SCH (08:35)
[2018-02-01] MEDS: pantoprazole 40mg Tablet.DR PO SCH ×2 (08:36→21:01)
[2018-02-01] MEDS: lactobacillus rhamnosus 10,000 MMU CELLS/CAPSULE PO SCH ×2 (08:36→20:59)
[2018-02-01] MEDS: digoxin 125mcg (0.125mg) tablet PO SCH (08:36)
[2018-02-01] MEDS: propranolol 10mg tablet PO SCH ×2 (08:37→21:02)
[2018-02-01] MEDS: docusate sod 100mg capsule PO SCH ×2 (08:37→20:59)
[2018-02-01] MEDS: folic acid 1mg tablet PO SCH (08:37)
[2018-02-01] MEDS: multivitamins, therapeutics tablet PO SCH (08:37)
[2018-02-01] MEDS: CefTRIAXone/D5W-Rocephin 1gm 50 ML IV SCH (08:38)
[2018-02-01] MEDS: oxyCODONE IR 5mg (immed. release) tablet PO PRN (21:09)
[2018-02-02] MEDS: metroNIDAZOLE 500mg tablet PO SCH ×2 (00:08→08:17)
[2018-02-02] MEDS: furosemide 20 MG/2 ML vial IV SCH ×4 (02:00→20:20)
[2018-02-02] MEDS: oxyCODONE IR 5mg (immed. release) tablet PO PRN ×2 (02:23→10:52)
[2018-02-02 03:38] VITALS: BP 99/58
[2018-02-02 05:34] LABS: BASOPHILS % (AUTO) 0.5 % (0-1); EOSINOPHILS # (AUTO) 0.5 X10'3 (0-0.9); EOSINOPHILS % (AUTO) 6.2 % (0-6); HEMATOCRIT 34.4 % (42.0-52.0); HEMOGLOBIN 11.9 g/dl (14.0-17.9); MEAN CORPUSCULAR HEMOGLOBIN 39.6 PG (27.0-31.0); MEAN CORPUSCULAR HGB CONC 34.5 % (33.0-36.5); MEAN CORPUSCULAR VOLUME 114.7 FL (78-98); MEAN PLATELET VOLUME 8.5 FL (7.4-10.4); MONOCYTES # (AUTO) 0.7 X10'3 (0-0.9); MONOCYTES % (AUTO) 9.7 % (2-12); NEUTROPHILS # (AUTO) 5.2 X10'3 (1.8-7.7); NEUTROPHILS % (AUTO) 70.6 % (42-75); PLATELET COUNT 121 X10'3 (140-440); RED CELL DISTRIBUTION WIDTH 16.4 % (11.5-14.5); WHITE BLOOD COUNT 7.4 X10'3 (4.5-11.0)
[2018-02-02 05:52] LABS: ALANINE AMINOTRANSFERASE 51 U/L (12-78); ALBUMIN 1.2 G/DL (3.4-5.0); ALKALINE PHOSPHATASE 110 IU/L (46-116); BILIRUBIN,TOTAL 14.4 MG/DL (0.1-1.0); BLOOD UREA NITROGEN 12 MG/DL (7-18); CALCIUM 7.4 MG/DL (8.5-10.1); CHLORIDE 98 MMOL/L (99-107); TOTAL CARBON DIOXIDE 33.1 MMOL/L (24-32)
[2018-02-02 06:00] VITALS: BP 105/61
[2018-02-02 06:03] LABS: ANISOCYTOSIS 1+; PLATELET ESTIMATE DECREASED; POLYCHROMASIA FEW
[2018-02-02 06:10] LABS: ALBUMIN/GLOBULIN RATIO 0.3 (1.1-1.5); ANION GAP 5 (8-16); BUN/CREATININE RATIO 12.4 (5.4-32.0); CREATININE 0.97 MG/DL (0.60-1.10); GLUCOSE 110 MG/DL (70-104); POTASSIUM 3.7 MMOL/L (3.5-5.1); SODIUM 136 MMOL/L (135-145); eGFR 80 ML/MIN
[2018-02-02 06:19] LABS: ASPARTATE AMINO TRANSFERASE 118 U/L (10-37)
[2018-02-02] MEDS: lactose-reduced food (Ensure Enlive) - 237ml bottle PO SCH ×3 (08:00→18:00)
[2018-02-02] MEDS: multivitamins, therapeutics tablet PO SCH (08:10)
[2018-02-02] MEDS: spironolactone 50 MG tablet PO SCH (08:11)
[2018-02-02] MEDS: folic acid 1mg tablet PO SCH (08:14)
[2018-02-02] MEDS: digoxin 125mcg (0.125mg) tablet PO SCH (08:16)
[2018-02-02] MEDS: docusate sod 100mg capsule PO SCH ×2 (08:16→20:20)
[2018-02-02] MEDS: thiamine 100mg tablet PO SCH (08:17)
[2018-02-02] MEDS: propranolol 10mg tablet PO SCH ×2 (08:17→20:21)
[2018-02-02] MEDS: CefTRIAXone/D5W-Rocephin 1gm 50 ML IV SCH (08:18)
[2018-02-02] MEDS: lactobacillus rhamnosus 10,000 MMU CELLS/CAPSULE PO SCH ×2 (08:18→20:21)
[2018-02-02] MEDS: pantoprazole 40mg Tablet.DR PO SCH ×2 (08:18→20:21)
[2018-02-02 11:00] VITALS: BP 102/68
[2018-02-02 15:00] VITALS: BP 100/58
[2018-02-02 19:00] VITALS: BP 107/59
[2018-02-02 23:00] VITALS: BP 90/54
[2018-02-03] MEDS: furosemide 20 MG/2 ML vial IV SCH ×4 (02:00→23:57)
[2018-02-03 03:00] VITALS: BP 94/57
[2018-02-03 06:00] VITALS: BP 116/56
[2018-02-03 06:11] LABS: BASOPHILS % (AUTO) 0.5 % (0-1); EOSINOPHILS # (AUTO) 0.3 X10'3 (0-0.9); EOSINOPHILS % (AUTO) 4.7 % (0-6); HEMATOCRIT 34.6 % (42.0-52.0); HEMOGLOBIN 11.9 g/dl (14.0-17.9); LYMPHOCYTES # (AUTO) 1.1 X10'3 (1.1-4.8); LYMPHOCYTES % (AUTO) 16.9 % (21-51); MEAN CORPUSCULAR HEMOGLOBIN 39.1 PG (27.0-31.0); MEAN CORPUSCULAR HGB CONC 34.5 % (33.0-36.5); MEAN CORPUSCULAR VOLUME 113.4 FL (78-98); MEAN PLATELET VOLUME 8.2 FL (7.4-10.4); MONOCYTES # (AUTO) 0.5 X10'3 (0-0.9); MONOCYTES % (AUTO) 8.6 % (2-12); NEUTROPHILS # (AUTO) 4.4 X10'3 (1.8-7.7); NEUTROPHILS % (AUTO) 69.3 % (42-75); PLATELET COUNT 113 X10'3 (140-440); RED BLOOD COUNT 3.05 X10'6 (4.70-6.10); RED CELL DISTRIBUTION WIDTH 16.1 % (11.5-14.5); WHITE BLOOD COUNT 6.3 X10'3 (4.5-11.0)
[2018-02-03 06:38] LABS: PLATELET ESTIMATE DECREASED
[2018-02-03 06:39] LABS: ANISOCYTOSIS 1+
[2018-02-03] MEDS: lactose-reduced food (Ensure Enlive) - 237ml bottle PO SCH ×3 (08:00→18:02)
[2018-02-03] MEDS: spironolactone 50 MG tablet PO SCH (08:00)
[2018-02-03] MEDS: docusate sod 100mg capsule PO SCH ×2 (08:00→19:24)
[2018-02-03] MEDS: multivitamins, therapeutics tablet PO SCH (08:00)
[2018-02-03] MEDS: thiamine 100mg tablet PO SCH (08:00)
[2018-02-03] MEDS: lactobacillus rhamnosus 10,000 MMU CELLS/CAPSULE PO SCH ×2 (08:02→19:24)
[2018-02-03] MEDS: propranolol 10mg tablet PO SCH ×2 (08:02→19:24)
[2018-02-03] MEDS: digoxin 125mcg (0.125mg) tablet PO SCH (08:02)
[2018-02-03] MEDS: pantoprazole 40mg Tablet.DR PO SCH ×2 (08:02→19:24)
[2018-02-03] MEDS: folic acid 1mg tablet PO SCH (08:03)
[2018-02-03 11:00] VITALS: BP 100/61
[2018-02-03] MEDS: oxyCODONE IR 5mg (immed. release) tablet PO PRN ×2 (13:03→17:21)
[2018-02-03 15:00] VITALS: BP 111/62
[2018-02-03] MEDS: ondansetron/PF 4mg/2ml inj IV PRN ×2 (16:33→23:59)
[2018-02-03 19:00] VITALS: BP 113/70
[2018-02-03 23:00] VITALS: BP 112/67
[2018-02-04] VITALS (7 sets, daily range): BP systolic 91–138; BP diastolic 45–67
[2018-02-04] MEDS: oxyCODONE IR 5mg (immed. release) tablet PO PRN (02:31)
[2018-02-04 05:38] LABS: BASOPHILS % (AUTO) 0.1 % (0-1); EOSINOPHILS # (AUTO) 0.3 X10'3 (0-0.9); HEMOGLOBIN 12.7 g/dl (14.0-17.9); LYMPHOCYTES # (AUTO) 0.9 X10'3 (1.1-4.8); LYMPHOCYTES % (AUTO) 11.4 % (21-51); MEAN CORPUSCULAR HEMOGLOBIN 39.1 PG (27.0-31.0); MEAN CORPUSCULAR HGB CONC 34.3 % (33.0-36.5); MEAN CORPUSCULAR VOLUME 114.1 FL (78-98); MEAN PLATELET VOLUME 8.5 FL (7.4-10.4); MONOCYTES # (AUTO) 0.8 X10'3 (0-0.9); MONOCYTES % (AUTO) 9.5 % (2-12); NEUTROPHILS # (AUTO) 6.1 X10'3 (1.8-7.7); PLATELET COUNT 126 X10'3 (140-440); RED BLOOD COUNT 3.25 X10'6 (4.70-6.10); WHITE BLOOD COUNT 8.2 X10'3 (4.5-11.0)
[2018-02-04 06:01] LABS: ALANINE AMINOTRANSFERASE 61 U/L (12-78); ALBUMIN 1.2 G/DL (3.4-5.0); ALKALINE PHOSPHATASE 124 IU/L (46-116); ANION GAP 6 (8-16); BILIRUBIN,TOTAL 17.1 MG/DL (0.1-1.0); BLOOD UREA NITROGEN 10 MG/DL (7-18); CALCIUM 7.5 MG/DL (8.5-10.1); CHLORIDE 98 MMOL/L (99-107); SODIUM 133 MMOL/L (135-145); TOTAL CARBON DIOXIDE 28.9 MMOL/L (24-32); eGFR 77 ML/MIN
[2018-02-04 06:04] LABS: ALBUMIN/GLOBULIN RATIO 0.2 (1.1-1.5); ASPARTATE AMINO TRANSFERASE 132 U/L (10-37); GLUCOSE 92 MG/DL (70-104); POTASSIUM 3.9 MMOL/L (3.5-5.1); TOTAL PROTEIN 6.2 G/DL (6.4-8.2)
[2018-02-04 06:54] LABS: PLATELET ESTIMATE DECREASED
[2018-02-04 06:55] LABS: ANISOCYTOSIS 1+
[2018-02-04] MEDS: furosemide 20 MG/2 ML vial IV SCH ×2 (07:56→20:51)
[2018-02-04] MEDS: docusate sod 100mg capsule PO SCH ×2 (07:56→20:51)
[2018-02-04] MEDS: lactose-reduced food (Ensure Enlive) - 237ml bottle PO SCH ×3 (07:57→17:39)
[2018-02-04] MEDS: lactobacillus rhamnosus 10,000 MMU CELLS/CAPSULE PO SCH ×2 (07:57→20:51)
[2018-02-04] MEDS: propranolol 10mg tablet PO SCH ×2 (07:58→20:51)
[2018-02-04] MEDS: folic acid 1mg tablet PO SCH (07:58)
[2018-02-04] MEDS: digoxin 125mcg (0.125mg) tablet PO SCH (08:00)
[2018-02-04] MEDS: thiamine 100mg tablet PO SCH (08:02)
[2018-02-04] MEDS: spironolactone 50 MG tablet PO SCH ×2 (08:02→20:51)
[2018-02-04] MEDS: pantoprazole 40mg Tablet.DR PO SCH ×2 (08:02→20:51)
[2018-02-04] MEDS: multivitamins, therapeutics tablet PO SCH (08:02)
[2018-02-04] MEDS: sucralfate 1 gm tablet PO SCH ×2 (16:00→21:00)
[2018-02-05 05:27] LABS: ALANINE AMINOTRANSFERASE 62 U/L (12-78); ALBUMIN 1.3 G/DL (3.4-5.0); ALKALINE PHOSPHATASE 109 IU/L (46-116); ANION GAP 5 (8-16); BILIRUBIN,TOTAL 19.4 MG/DL (0.1-1.0); BLOOD UREA NITROGEN 15 MG/DL (7-18); CALCIUM 8.4 MG/DL (8.5-10.1); CHLORIDE 97 MMOL/L (99-107); SODIUM 130 MMOL/L (135-145)
[2018-02-05 05:38] LABS: ALBUMIN/GLOBULIN RATIO 0.3 (1.1-1.5); ASPARTATE AMINO TRANSFERASE 147 U/L (10-37); BUN/CREATININE RATIO 13.6 (5.4-32.0); GLUCOSE 71 MG/DL (70-104); POTASSIUM 4.3 MMOL/L (3.5-5.1); TOTAL PROTEIN 6.3 G/DL (6.4-8.2); eGFR 69 ML/MIN
[2018-02-05 06:43] VITALS: BP 102/57
[2018-02-05] MEDS: lactose-reduced food (Ensure Enlive) - 237ml bottle PO SCH ×3 (08:00→18:33)
[2018-02-05] MEDS: docusate sod 100mg capsule PO SCH (09:06)
[2018-02-05] MEDS: spironolactone 50 MG tablet PO SCH ×2 (09:06→20:00)
[2018-02-05] MEDS: multivitamins, therapeutics tablet PO SCH (09:07)
[2018-02-05] MEDS: folic acid 1mg tablet PO SCH (09:07)
[2018-02-05] MEDS: pantoprazole 40mg Tablet.DR PO SCH ×2 (09:07→20:24)
[2018-02-05] MEDS: propranolol 10mg tablet PO SCH ×2 (09:07→20:00)
[2018-02-05] MEDS: thiamine 100mg tablet PO SCH (09:07)
[2018-02-05] MEDS: digoxin 125mcg (0.125mg) tablet PO SCH (09:08)
[2018-02-05] MEDS: furosemide 20 MG/2 ML vial IV SCH ×2 (09:09→20:00)
[2018-02-05] MEDS: lactobacillus rhamnosus 10,000 MMU CELLS/CAPSULE PO SCH ×2 (09:09→20:24)
[2018-02-05] MEDS: sucralfate 1 gm tablet PO SCH ×4 (09:09→20:24)
[2018-02-05 11:00] VITALS: BP 105/65
[2018-02-05] MEDS ORDERED: lactulose 20gm/30ml cup PO PRN (11:45)
[2018-02-05] MEDS: oxyCODONE IR 5mg (immed. release) tablet PO PRN ×2 (11:48→20:32)
[2018-02-05 15:00] VITALS: BP 108/65
[2018-02-05] MEDS: lactulose 20gm/30ml cup PO SCH ×2 (16:33→20:21)
[2018-02-05 18:00] VITALS: BP 128/75
[2018-02-05 20:20] VITALS: BP 95/47
[2018-02-05 22:00] VITALS: BP 114/56
[2018-02-06] VITALS (7 sets, daily range): BP systolic 93–123; BP diastolic 51–74
[2018-02-06] MEDS: lactulose 20gm/30ml cup PO SCH ×3 (01:23→20:53)
[2018-02-06] MEDS: oxyCODONE IR 5mg (immed. release) tablet PO PRN ×2 (01:27→20:54)
[2018-02-06] MEDS: propranolol 10mg tablet PO SCH ×4 (06:50→20:53)
[2018-02-06] MEDS: furosemide 20 MG/2 ML vial IV SCH ×3 (06:50→20:52)
[2018-02-06] MEDS: spironolactone 50 MG tablet PO SCH ×3 (06:50→20:52)
[2018-02-06 07:56] LABS: ALANINE AMINOTRANSFERASE 61 U/L (12-78); ALBUMIN 1.3 G/DL (3.4-5.0); ALKALINE PHOSPHATASE 110 IU/L (46-116); ANION GAP 5 (8-16); BILIRUBIN,TOTAL 23.3 MG/DL (0.1-1.0); BLOOD UREA NITROGEN 23 MG/DL (7-18); CALCIUM 8.4 MG/DL (8.5-10.1); CHLORIDE 94 MMOL/L (99-107); SODIUM 128 MMOL/L (135-145); TOTAL CARBON DIOXIDE 28.6 MMOL/L (24-32)
[2018-02-06] MEDS: digoxin 125mcg (0.125mg) tablet PO SCH (07:59)
[2018-02-06 08:00] LABS: ALBUMIN/GLOBULIN RATIO 0.3 (1.1-1.5); ASPARTATE AMINO TRANSFERASE 138 U/L (10-37); BUN/CREATININE RATIO 13.9 (5.4-32.0); CREATININE 1.65 MG/DL (0.60-1.10); GLUCOSE 99 MG/DL (70-104); POTASSIUM 4.1 MMOL/L (3.5-5.1); TOTAL PROTEIN 6.3 G/DL (6.4-8.2); eGFR 43 ML/MIN
[2018-02-06] MEDS: lactobacillus rhamnosus 10,000 MMU CELLS/CAPSULE PO SCH ×2 (08:00→20:52)
[2018-02-06] MEDS: sucralfate 1 gm tablet PO SCH ×4 (08:00→20:52)
[2018-02-06] MEDS: thiamine 100mg tablet PO SCH (08:01)
[2018-02-06] MEDS: lactose-reduced food (Ensure Enlive) - 237ml bottle PO SCH ×3 (08:01→17:53)
[2018-02-06] MEDS: multivitamins, therapeutics tablet PO SCH (08:01)
[2018-02-06] MEDS: folic acid 1mg tablet PO SCH (08:01)
[2018-02-06] MEDS: pantoprazole 40mg Tablet.DR PO SCH ×2 (08:02→20:53)
[2018-02-06] MEDS ORDERED: lactulose 20gm/30ml cup PO PRN ×2 (10:50→14:15)
[2018-02-06] MEDS: morphine 2 MG/ML inj. syringe IV PRN (14:35)
[2018-02-06 15:30] LABS: CLARITY,URINE CLEAR (Clear); COLOR,URINE ORANGE (Yellow)
[2018-02-06 15:32] LABS: UA COLLECTION TYPE NON-SPECIFIED
[2018-02-06 15:39] LABS: BACTERIA,URINE NONE SEEN /HPF (Neg); MUCUS STRANDS NONE SEEN /LPF (Neg); RBC,URINE 0-2 /HPF (0-2); RENAL CELLS, URINE MODERATE /HPF; SQUAMOUS EPITHELIAL CELL,UR FEW /LPF (FEW); TRANSITIONAL EPI CELLS,URINE FEW /HPF; WBC,URINE 0-4 /HPF (0-4)
[2018-02-07] MEDS: morphine 2 MG/ML inj. syringe IV PRN ×2 (00:50→21:54)
[2018-02-07 02:00] VITALS: BP 111/64
[2018-02-07 05:33] LABS: ALANINE AMINOTRANSFERASE 67 U/L (12-78); ALBUMIN 1.4 G/DL (3.4-5.0); ALKALINE PHOSPHATASE 105 IU/L (46-116); ANION GAP 4 (8-16); BILIRUBIN,TOTAL 24.7 MG/DL (0.1-1.0); BLOOD UREA NITROGEN 23 MG/DL (7-18); BUN/CREATININE RATIO 13.2 (5.4-32.0); CALCIUM 8.6 MG/DL (8.5-10.1); CHLORIDE 93 MMOL/L (99-107); CREATININE 1.74 MG/DL (0.60-1.10); SODIUM 127 MMOL/L (135-145); TOTAL CARBON DIOXIDE 29.7 MMOL/L (24-32); eGFR 41 ML/MIN
[2018-02-07 05:35] LABS: ALBUMIN/GLOBULIN RATIO 0.3 (1.1-1.5); ASPARTATE AMINO TRANSFERASE 141 U/L (10-37); GLUCOSE 93 MG/DL (70-104); POTASSIUM 4.1 MMOL/L (3.5-5.1); TOTAL PROTEIN 6.4 G/DL (6.4-8.2)
[2018-02-07 06:00] VITALS: BP 105/64
[2018-02-07] MEDS: sucralfate 1 gm tablet PO SCH ×4 (07:00→20:22)
[2018-02-07] MEDS: pantoprazole 40mg Tablet.DR PO SCH ×2 (08:00→20:22)
[2018-02-07] MEDS: lactose-reduced food (Ensure Enlive) - 237ml bottle PO SCH ×3 (08:00→18:00)
[2018-02-07] MEDS: lactobacillus rhamnosus 10,000 MMU CELLS/CAPSULE PO SCH ×2 (08:00→20:22)
[2018-02-07] MEDS: spironolactone 50 MG tablet PO SCH ×2 (08:00→20:22)
[2018-02-07] MEDS: digoxin 125mcg (0.125mg) tablet PO SCH (08:00)
[2018-02-07] MEDS: propranolol 10mg tablet PO SCH ×2 (08:00→20:20)
[2018-02-07] MEDS: thiamine 100mg tablet PO SCH (08:00)
[2018-02-07] MEDS: lactulose 20gm/30ml cup PO SCH ×3 (08:00→20:19)
[2018-02-07] MEDS: multivitamins, therapeutics tablet PO SCH ×2 (08:00→08:34)
[2018-02-07] MEDS: furosemide 20 MG/2 ML vial IV SCH ×2 (08:00→20:19)
[2018-02-07] MEDS: folic acid 1mg tablet PO SCH ×2 (08:00→08:33)
[2018-02-07 15:00] VITALS: BP 112/61
[2018-02-07 19:00] VITALS: BP 96/49
[2018-02-07] MEDS: oxyCODONE IR 5mg (immed. release) tablet PO PRN (22:01)
[2018-02-07 23:00] VITALS: BP 131/65
[2018-02-08 03:00] VITALS: BP 93/55
[2018-02-08 05:33] LABS: ALANINE AMINOTRANSFERASE 78 U/L (12-78); ALBUMIN 1.4 G/DL (3.4-5.0); ALKALINE PHOSPHATASE 123 IU/L (46-116); CALCIUM 8.2 MG/DL (8.5-10.1); CHLORIDE 92 MMOL/L (99-107); CREATININE 2.08 MG/DL (0.60-1.10); TOTAL CARBON DIOXIDE 29.3 MMOL/L (24-32); eGFR 33 ML/MIN
[2018-02-08 05:38] LABS: ALBUMIN/GLOBULIN RATIO 0.3 (1.1-1.5); BILIRUBIN,TOTAL 27.3 MG/DL (0.1-1.0); TOTAL PROTEIN 6.6 G/DL (6.4-8.2)
[2018-02-08 05:55] LABS: ASPARTATE AMINO TRANSFERASE 173 U/L (10-37)
[2018-02-08 05:57] LABS: ANION GAP 4 (8-16); GLUCOSE 83 MG/DL (70-104); POTASSIUM 3.9 MMOL/L (3.5-5.1); SODIUM 125 MMOL/L (135-145)
[2018-02-08 06:00] VITALS: BP 97/54
[2018-02-08 06:14] LABS: BLOOD UREA NITROGEN 22 MG/DL (7-18); BUN/CREATININE RATIO 10.6 (5.4-32.0)
[2018-02-08] MEDS: sucralfate 1 gm tablet PO SCH ×4 (07:00→20:52)
[2018-02-08] MEDS: lactose-reduced food (Ensure Enlive) - 237ml bottle PO SCH ×3 (08:00→18:00)
[2018-02-08] MEDS: digoxin 125mcg (0.125mg) tablet PO SCH (08:00)
[2018-02-08] MEDS: propranolol 10mg tablet PO SCH ×2 (08:35→20:00)
[2018-02-08] MEDS: thiamine 100mg tablet PO SCH (08:35)
[2018-02-08] MEDS: multivitamins, therapeutics tablet PO SCH (08:36)
[2018-02-08] MEDS: lactobacillus rhamnosus 10,000 MMU CELLS/CAPSULE PO SCH ×2 (08:39→19:36)
[2018-02-08] MEDS: spironolactone 50 MG tablet PO SCH ×2 (08:40→19:41)
[2018-02-08] MEDS: folic acid 1mg tablet PO SCH (08:40)
[2018-02-08] MEDS: pantoprazole 40mg Tablet.DR PO SCH ×2 (08:40→19:36)
[2018-02-08] MEDS: lactulose 20gm/30ml cup PO SCH ×2 (08:41→19:36)
[2018-02-08] MEDS: furosemide 20 MG/2 ML vial IV SCH ×2 (08:42→20:00)
[2018-02-08 11:00] VITALS: BP 95/54
[2018-02-08 15:00] VITALS: BP 105/61
[2018-02-08 19:00] VITALS: BP 91/56
[2018-02-08] MEDS: tamsulosin 0.4mg capsule PO SCH ×2 (20:00→23:19)
[2018-02-08] MEDS: oxyCODONE IR 5mg (immed. release) tablet PO PRN (20:54)
[2018-02-08 23:00] VITALS: BP 93/60
[2018-02-09 03:00] VITALS: BP 91/55
[2018-02-09] MEDS ORDERED: diltiazem 30mg tablet PO ONE (03:50)
[2018-02-09] MEDS: oxyCODONE IR 5mg (immed. release) tablet PO PRN ×2 (05:21→10:09)
[2018-02-09 06:00] VITALS: BP 91/50
[2018-02-09 06:45] LABS: BASOPHILS % (AUTO) 0.1 % (0-1); EOSINOPHILS # (AUTO) 0.3 X10'3 (0-0.9); EOSINOPHILS % (AUTO) 4.8 % (0-6); HEMATOCRIT 37.6 % (42.0-52.0); HEMOGLOBIN 13.4 g/dl (14.0-17.9); LYMPHOCYTES # (AUTO) 0.7 X10'3 (1.1-4.8); LYMPHOCYTES % (AUTO) 10.2 % (21-51); MEAN CORPUSCULAR HEMOGLOBIN 39.4 PG (27.0-31.0); MEAN CORPUSCULAR HGB CONC 35.5 % (33.0-36.5); MEAN CORPUSCULAR VOLUME 110.8 FL (78-98); MEAN PLATELET VOLUME 8.5 FL (7.4-10.4); MONOCYTES # (AUTO) 0.8 X10'3 (0-0.9); MONOCYTES % (AUTO) 11.2 % (2-12); NEUTROPHILS # (AUTO) 5.1 X10'3 (1.8-7.7); NEUTROPHILS % (AUTO) 73.7 % (42-75); PLATELET COUNT 92 X10'3 (140-440); RED BLOOD COUNT 3.39 X10'6 (4.70-6.10); RED CELL DISTRIBUTION WIDTH 15.1 % (11.5-14.5); WHITE BLOOD COUNT 6.9 X10'3 (4.5-11.0)
[2018-02-09 06:51] LABS: INR 2.6 INR; PROTHROMBIN TIME 25.3 SECONDS (9.0-12.0)
[2018-02-09] MEDS: sucralfate 1 gm tablet PO SCH ×4 (07:00→20:57)
[2018-02-09 07:10] LABS: ALANINE AMINOTRANSFERASE 86 U/L (12-78); ALBUMIN 1.4 G/DL (3.4-5.0); ALKALINE PHOSPHATASE 117 IU/L (46-116); BLOOD UREA NITROGEN 33 MG/DL (7-18); CALCIUM 8.6 MG/DL (8.5-10.1); CHLORIDE 91 MMOL/L (99-107); TOTAL CARBON DIOXIDE 27.2 MMOL/L (24-32)
[2018-02-09 07:19] LABS: LARGE PLATELETS FEW; PLATELET ESTIMATE DECREASED
[2018-02-09 07:30] LABS: ALBUMIN/GLOBULIN RATIO 0.3 (1.1-1.5); ANION GAP 8 (8-16); BUN/CREATININE RATIO 13.4 (5.4-32.0); CREATININE 2.46 MG/DL (0.60-1.10); GLUCOSE 95 MG/DL (70-104); POTASSIUM 3.9 MMOL/L (3.5-5.1); SODIUM 126 MMOL/L (135-145); TOTAL PROTEIN 6.8 G/DL (6.4-8.2); eGFR 27 ML/MIN
[2018-02-09 07:38] LABS: ASPARTATE AMINO TRANSFERASE 176 U/L (10-37); BILIRUBIN,TOTAL 27.6 MG/DL (0.1-1.0)
[2018-02-09] MEDS: propranolol 10mg tablet PO SCH ×2 (08:00→20:00)
[2018-02-09] MEDS: furosemide 20 MG/2 ML vial IV SCH (08:00)
[2018-02-09] MEDS: lactose-reduced food (Ensure Enlive) - 237ml bottle PO SCH ×3 (08:00→17:50)
[2018-02-09 08:13] VITALS: BP 94/52
[2018-02-09] MEDS: spironolactone 50 MG tablet PO SCH ×2 (08:16→20:59)
[2018-02-09] MEDS: lactulose 20gm/30ml cup PO SCH ×2 (08:16→20:57)
[2018-02-09] MEDS: lactobacillus rhamnosus 10,000 MMU CELLS/CAPSULE PO SCH ×2 (08:16→20:57)
[2018-02-09] MEDS: thiamine 100mg tablet PO SCH (08:17)
[2018-02-09] MEDS: multivitamins, therapeutics tablet PO SCH (08:17)
[2018-02-09] MEDS: tamsulosin 0.4mg capsule PO SCH ×2 (08:17→20:57)
[2018-02-09] MEDS: pantoprazole 40mg Tablet.DR PO SCH ×2 (08:17→20:57)
[2018-02-09] MEDS: digoxin 125mcg (0.125mg) tablet PO SCH (08:17)
[2018-02-09] MEDS: folic acid 1mg tablet PO SCH (08:17)
[2018-02-09 11:00] VITALS: BP 96/46
[2018-02-09 14:35] VITALS: BP 106/63
[2018-02-09 20:00] VITALS: BP 97/48
[2018-02-10] VITALS: BP 92/46
[2018-02-10 07:32] VITALS: BP 80/33
[2018-02-10 07:33] VITALS: BP_SYST 100; BP_SYST 83; BP_DIAS 35; BP_DIAS 61
[2018-02-10] MEDS: furosemide 40mg tablet PO SCH (08:00)
[2018-02-10] MEDS: propranolol 10mg tablet PO SCH ×2 (08:00→20:00)
[2018-02-10] MEDS: lactulose 20gm/30ml cup PO SCH ×2 (08:00→20:00)
[2018-02-10] MEDS: folic acid 1mg tablet PO SCH (08:06)
[2018-02-10] MEDS: tamsulosin 0.4mg capsule PO SCH ×2 (08:06→21:19)
[2018-02-10] MEDS: pantoprazole 40mg Tablet.DR PO SCH ×2 (08:06→21:19)
[2018-02-10] MEDS: sucralfate 1 gm tablet PO SCH ×4 (08:07→21:00)
[2018-02-10] MEDS: digoxin 125mcg (0.125mg) tablet PO SCH (08:07)
[2018-02-10] MEDS: thiamine 100mg tablet PO SCH (08:07)
[2018-02-10] MEDS: lactobacillus rhamnosus 10,000 MMU CELLS/CAPSULE PO SCH ×2 (08:07→20:00)
[2018-02-10] MEDS: spironolactone 50 MG tablet PO SCH ×2 (08:08→20:00)
[2018-02-10] MEDS: multivitamins, therapeutics tablet PO SCH (08:08)
[2018-02-10] MEDS: lactose-reduced food (Ensure Enlive) - 237ml bottle PO SCH ×3 (08:09→18:00)
[2018-02-10] MEDS: oxyCODONE IR 5mg (immed. release) tablet PO PRN ×3 (08:55→21:20)
[2018-02-10 11:00] VITALS: BP 99/47
[2018-02-10] MEDS ORDERED: morphine 10mg/0.5ml (conc. morphine) oral syringe PO PRN (15:35)
[2018-02-10 19:19] VITALS: BP 96/45
[2018-02-11] MEDS: oxyCODONE IR 5mg (immed. release) tablet PO PRN ×2 (01:50→05:31)
[2018-02-11] MEDS: sucralfate 1 gm tablet PO SCH ×4 (07:00→21:00)
[2018-02-11] MEDS: lactose-reduced food (Ensure Enlive) - 237ml bottle PO SCH ×3 (08:00→18:00)
[2018-02-11] MEDS: furosemide 40mg tablet PO SCH (08:00)
[2018-02-11] MEDS: pantoprazole 40mg Tablet.DR PO SCH ×2 (08:00→22:01)
[2018-02-11] MEDS: lactulose 20gm/30ml cup PO SCH ×2 (08:00→20:00)
[2018-02-11] MEDS: thiamine 100mg tablet PO SCH (08:00)
[2018-02-11] MEDS: digoxin 125mcg (0.125mg) tablet PO SCH (08:00)
[2018-02-11] MEDS: multivitamins, therapeutics tablet PO SCH (08:00)
[2018-02-11] MEDS: spironolactone 50 MG tablet PO SCH ×2 (08:00→20:00)
[2018-02-11] MEDS: tamsulosin 0.4mg capsule PO SCH ×2 (08:00→20:00)
[2018-02-11] MEDS: lactobacillus rhamnosus 10,000 MMU CELLS/CAPSULE PO SCH ×2 (08:00→20:00)
[2018-02-11] MEDS: folic acid 1mg tablet PO SCH (08:00)
[2018-02-11] MEDS: propranolol 10mg tablet PO SCH ×2 (08:00→20:00)
[2018-02-11 12:41] VITALS: BP 90/49
[2018-02-11 18:00] VITALS: BP 87/34
[2018-02-12] MEDS: morphine 10mg/0.5ml (conc. morphine) oral syringe PO PRN ×2 (00:51→11:15)
[2018-02-12 07:00] VITALS: BP 82/37
[2018-02-12] MEDS: sucralfate 1 gm tablet PO SCH ×2 (07:00→11:00)
[2018-02-12] MEDS: spironolactone 50 MG tablet PO SCH (07:06)
[2018-02-12] MEDS: propranolol 10mg tablet PO SCH (07:08)
[2018-02-12] MEDS: furosemide 40mg tablet PO SCH (07:08)
[2018-02-12] MEDS: lactulose 20gm/30ml cup PO SCH (08:00)
[2018-02-12] MEDS: multivitamins, therapeutics tablet PO SCH (08:00)
[2018-02-12] MEDS: lactose-reduced food (Ensure Enlive) - 237ml bottle PO SCH (08:00)
[2018-02-12] MEDS: tamsulosin 0.4mg capsule PO SCH (08:00)
[2018-02-12] MEDS: lactobacillus rhamnosus 10,000 MMU CELLS/CAPSULE PO SCH (08:00)
[2018-02-12] MEDS: pantoprazole 40mg Tablet.DR PO SCH (08:02)
== END 2018-02-12 15:45 | disposition expired | DRG 720 ==
LOC: ER 19:00 → ED HOLD 23:33 → PCU 3S 01-18 01:42 → SUR 3N 02-09 14:10 → UNDODISIN 02-12 14:20
PROVIDERS: ADMIT Family Medicine; ATTEND Family Medicine
DX: A41.51 Sepsis due to Escherichia coli [E. coli] (principal); K76.7 Hepatorenal syndrome; I13.2 Hypertensive heart and chronic kidney disease with heart failure and with stage 5 chronic kidney disease, or end stage renal disease; N17.9 Acute kidney failure, unspecified; D68.9 Coagulation defect, unspecified; E87.1 Hypo-osmolality and hyponatremia; D69.59 Other secondary thrombocytopenia; E87.2 Acidosis; N18.6 End stage renal disease; I50.33 Acute on chronic diastolic (congestive) heart failure; E86.1 Hypovolemia; B18.2 Chronic viral hepatitis C; E88.09 Other disorders of plasma-protein metabolism, not elsewhere classified; G89.29 Other chronic pain; I48.0 Paroxysmal atrial fibrillation; I48.2 Chronic atrial fibrillation; E87.6 Hypokalemia; R19.7 Diarrhea, unspecified; F10.20 Alcohol dependence, uncomplicated; K70.11 Alcoholic hepatitis with ascites; K51.90 Ulcerative colitis, unspecified, without complications; K70.31 Alcoholic cirrhosis of liver with ascites; K29.20 Alcoholic gastritis without bleeding; K70.40 Alcoholic hepatic failure without coma; K76.6 Portal hypertension; E66.9 Obesity, unspecified; M54.9 Dorsalgia, unspecified; R33.9 Retention of urine, unspecified; Z51.5 Encounter for palliative care; Z66 Do not resuscitate; Z59.0 Homelessness; Z88.8 Allergy status to other drugs, medicaments and biological substances; Z91.041 Radiographic dye allergy status; Z79.899 Other long term (current) drug therapy; Z79.891 Long term (current) use of opiate analgesic; Z68.41 Body mass index [BMI] 40.0-44.9, adult; Z71.41 Alcohol abuse counseling and surveillance of alcoholic
CPT/HCPCS: 36415; 36600; 71045; 74176; 74181; 76700; 76705; 80048; 80053; 80076; 80162; 80305; 80320; 81001; 81003; 82140; 82150; 82272; 82570; 82803; 82948; 83036; 83605; 83690; 83735; 83880; 84100; 84145; 84156; 84439; 84443; 84484; 85018; 85025; 85610; 85730; 87040; 87045; 87046; 87070; 87077; 87186; 87324; 87449; 89055; 93005; 93306; 96365; 96375; 97110; 97116; 97161; 99291; C9113; G0378; J0696; J1940; J2001; J2270; J2405; J2543; J2930; J3411; J3490; J7030; J7060; P9045; P9047